=== PATIENT | female | born 1950 | race Caucasian/White ===

== ENCOUNTER 2020-03-18 02:45 | Inpatient (IN) | payer OTHER ==
--- OUTSIDE RECORDS SUMMARY | 2020-03-18 02:49 | XMS REPORT | Clinical Summary ---
:[address] [facility] Address [address] [place] [address] Care Team Providers Name Role Phone Yassine Davis Primary Care Provider Allergies Active Allergy Reactions Severity Noted Date Comments Adhesive Tape Other (See Comments) 04/24/2018 Bruisi ng but paper tape is okay Aspirin Hives, Other (See 04/24/2018 Only when taken with Comments) Shrimp GI upset Codeine Itching, Rash Low 04/24/2018 Shrimp Hives Medium 04/24/2018 Only when taken with Aspirin GI upset Medications Medication Sig Dispensed Refills Start Date End Date Status pantoprazole (PROTONIX) Take 40 mg by 0 Active 40 MG tablet mouth daily. Active Problems Not on file Social History Tobacco Use Types Packs/Day Years Used Date Current Every Day Smoker 1 30 Smokeless Tobacco: Never Used Tobacco Cessation: Ready to Quit: Yes; C ounseling Given: Yes Alcohol Use Drinks/Week oz/Week Comments Yes 14 Glasses of wine 14.0 Sex Assigned at Date Recorded Not on file Last Filed Vital Signs Not on file Plan of Treatment Health Maintenance Due Date Last Done Comments BREAST CANCER SCREENING 1950 COLON CANCER SCREENING COLONOSCOPY 1950 PNEUMOCOCCAL 65+ YRS (1 of - [id number] PCV13) 2017 MEDICARE ANNUAL WELLNESS (YEAR 2 or FIRST YEAR if no 03/14/2019 IPPE) INFLUENZA VACCINE (#1) 2019 Results Not on fileafter 03/18/2019 Insurance Payer Benefit Plan Subscriber ID Effective Phone Address Typ e / Group Dates AETNA - AETNA [id number] 2018-Selin [phone] [address] [employer] MEDICARE MGD MEDICARE OPEN nt 12 [id number] Non-[facility] CARE PLAN PFFS IAN SANTAMARIA acted [id number]
--- OUTSIDE RECORDS SUMMARY | 2020-03-18 02:49 | XMS REPORT | Continuity of Care Document ---
:1950 Author Organization [facility] Address [address] [place] [address] Care Team Providers Name Role Phone Yassine Davis Primary Care Physician JERMAINE ROMO Attending Clinician Unavailable JERMAINE ROMO Admitting Clinician Unavailable Problems This patient has no known problems. Allergies, Adverse Reactions, Alerts Allergy Allergy Status Severity Reaction(s) Onset Inactive Treating Comm ents Source Name Type Date Date Clinician Adhesive Propensi Active Other (See Bru[facility] Comments) 2 but paper [facility] - adverse 00:00: tape is Medical reaction 00 okay [place] [facility] Aspirin Propensi Active Hives, Other Only [facility] to (See 12 when [facility] - adverse Comments) 00:00: taken Medica l reaction 00 with Center s ShrimpGI upset Codeine Propensi Active Itching, 0 [facility] - adverse 00:00: Medical reaction 00 Center s Shrimp Propensi Active Hives 0 Only when [facility] 12 taken [facility] - adverse 00:00: with Medical reaction 00 Aspirin Center s GI upset Social History Social Habit Start Date Stop Date Quantity Comments Source Sex Assigned At [facility] Cigarettes smoked 2018-04-27 2018-04-27 LEONID Nuñez - current (pack per 00:00:00 00:00:00 Medical Center day) - Reported Cigarette 2018-04-27 2018-04-27 LEONID Moraleskes - pack-years 00:00:00 00:00:00 [facility] Tobacco use and 2018-04-27 2018-04-[address] [facility] - exposure 00:00:00 00:00:00 Medical Center Alcohol intake 2018-04-27 2018-04-27 [facility]:00 of alcohol [facility] (finding) Smoking Status Start Date Stop Date Source Current every day smoker 2018-04-27 00:00:[address] [facility] Medications Ordered Filled Start Stop Current Ordering Indication Dosage Frequency Signature Comments Components Source Medication Medication Date Date Medication? Clinician (SIG) Name Name pantoprazol 2018- Yes 40mg QD Take [address] 2-14 by mouth [facility] - (PROTONIX) 17:06: daily. Medic al 40 MG 21 Center tablet Procedures This patient has no known procedures. Plan of Care Planned Activity Planned Date Details Comments Source Future Scheduled 2019-11-12 INFLUENZA VACCINE (#1) [facility] - Test 00:00:00 [code = INFLUENZA Medical Ce nter VACCINE (#1)] Future Scheduled 2019-03-[address] [facility] [facility] - Test 00:00:00 WELLNESS (YEAR 2 or Medical Center FIRST YEAR if no IPPE) [code = MEDICARE ANNUAL WELLNESS (YEAR 2 or FIRST YEAR if no IPPE)] Future Scheduled 2017 PNEUMOCOCCAL 65+ YRS [facility] - Test 00:00:00 (1 of 1 - Medical Center [id number] PCV13) [code = PNEUMOCOCCAL 65+ YRS (1 of 1 - [id number] PCV13)] Future Scheduled [address] [facility] - Test 00:00:00 [facility]) [code = 114112711] Future Scheduled [address] [facility] - Test 00:00:00 [facility] colon (procedure) [code = 350341945] Results Test Description Test Time Test Comments Results Result Comments Source TISSUE EXAM 2018-04-30 Surgical Pathology 14:56:00 Report Case: [id number] Authorizing Provider: Ilene Romo Collected: 04/26/2018 Jennifer Reed MD Ordering Location: [facility] Endoscopy Received: 04/26/2018 1550 Services Pathologist: Nicki Hall MD Specimens: A) - Polyp, Colon - Hepatic Flexure, HEPATIC FLEXURE POLYP - ESD B) - Polyp, Colon - Transverse, TRRANSVERSE COLON POLYP #1 C) - Polyp, Colon - Transverse, TRANSVERSE COLON POLYP #2 D) - Polyp, Colon - Left/Descending, DESCENDING COLON POLYP X2 A. COLON, HEPATIC FLEXURE POLYP, ENDOSCOPIC SUBMUCOSAL DISSECTION: - TUBULAR ADENOMA - SUBMUCOSAL SCAR AND TATTOO - NEGATIVE FOR HIGH-GRADE DYSPLASIA OR MALIGNANCY - MARGIN, FREE OF ADENOMATOUS EPITHELIUMB. COLON, TRANSVERSE POLYP#1, BIOPSY: - COLONIC MUCOSA WITH SLIGHT CRYPT DISTORTION - NEGATIVE FOR HIGH-GRADE DYSPLASIA OR MALIGNANCYC. COLON, TRANSVERSE POLYP#2, BIOPSY: - TUBULAR ADENOMA - NEGATIVE FOR HIGH-GRADE DYSPLASIA OR MALIGNANCY - MARGIN, FREE OF ADENOMATOUS EPITHELIUMD. COLON, DESCENDING POLYPSX2, BIOPSY: - TUBULAR ADENOMAS X 2 - NEGATIVE FOR HIGH-GRADE DYSPLASIA OR MALIGNANCY - MARGIN, FREE OF ADENOMATOUS EPITHELIUM Signing Pathologist Direct Phone Line: [phone] nically signed by Nicki Hall MD on 04/30/2018 at 2:56 [id number] of colon A. Hepatic flexure polyp ESD. B. Transverse colon polyp #1. C. Transverse colon polyp #2. D. Left descending colon polyp #2Specimens are received in four containers of formalin all labeled with the patient's information.Specime n A: Labeled "hepatic flexure polyp ESD" consists of a unoriented round excision of angeles hemorrhagic mucosal soft tissue measuring 1.2 x 1 x 0.1 cm. The surface has a angeles nodular lesion measuring 0.7 x 0.6 x 0.3 cm.Ink code: Periphery blue, deep black.The specimen is serially sectioned from one end to the other and submitted entirely in A1 through A6.Specimen B: Labeled "transverse colon polyp #1" consists of two ragged fragments of angeles tissue measuring 0.1 and 0.4 cm, submitted entirely in B1.Specimen C: Labeled "transverse colon polyp #2" consists of a angeles polyp measuring 1.1 x 0.6 x 0.5 cm. The resection margin is inked blue. The specimen is bisected and submitted entirely in C1.Specimen D: Labeled "left descending colon polyp x2" consists of two fragments of angeles tissue measuring 0.3 and 1 cm. The larger fragment is inked blue at the resection margin, bisected and submitted entirely as follows: D1, smaller fragment of tissue; D2, polyp bisected. CG/ew Performed.
[2020-03-18] MEDS ORDERED: LEVALBUTEROL 1.25 MG/3 ML NEB ONE (03:23)
[2020-03-18] MEDS ORDERED: Magnesium Sulfate 2gm IVPB 2 G/50 ML BAG IV ONE (03:24)
[2020-03-18 03:27] LABS: Basophils % 0.4 % (0-1.3); Hematocrit 42.5 % (36.0-45.0); Lymphocytes % 14.1 % (15.3-44.8); MPV 6.8 fL (7.6-11.3); RBC Red Blood Cell Count 3.61 M/uL (3.86-4.86)
[2020-03-18 03:28] LABS: Protime INR 0.91
[2020-03-18] MEDS ORDERED: ALBUTEROL INHALER 60 PUFF/8 GM IH ONE (03:40)
[2020-03-18 03:48] LABS: ALT/SGPT 31 U/L (12-78); AST/SGOT 50 U/L (15-37); Albumin 3.5 g/dL (3.4-5.0); Alkaline Phosphatase 123 U/L (45-117); BUN Blood Urea Nitrogen 13 mg/dL (7-18); Bicarbonate 21 mmol/L (21-32); Bilirubin Direct 0.3 mg/dL (0-0.2); Bilirubin Total 0.8 mg/dL (0.2-1.0); C-Reactive Protein < 2.90 mg/L (<3.00); Ferritin 165.9 ng/mL (8-388); Glucose Level 171 mg/dL (74-106); Potassium 3.7 mmol/L (3.5-5.1); Protein, Total 6.7 g/dL (6.4-8.2); Sodium Level 140 mmol/L (136-145); Troponin (Emerg Dept Use Only) 0.02 ng/mL (0.0-0.045)
[2020-03-18 04:23] LABS: SARS-COV-2 RT PCR NEGATIVE (NEGATIVE)
[2020-03-18] MEDS ORDERED: NA CHLORIDE 0.9% 500 ML ONE ×2 (04:37→06:10)
[2020-03-18 04:50] LABS: Blood Morphology Comment NOTED (NOT SEEN); Macrocytosis 3+; Platelet Estimate ADEQ; White Blood Cell Scan OK (OK)
--- NOTE | 2020-03-18 04:51 | EDPHYS ---
Physician Documentation [facility] Name: Lety Benson Age: 69 yrs Sex: Female : 1950 Arrival Date: 03/18/2020 Time: 02:49 Bed 4 Private MD: ED Physician Leonard Guerrero HPI: 03/18 03:13 This 69 yrs old Female presents to ER via EMS with complaints of Shortness Of rn Breath. 03:13 The patient has shortness of breath at rest. Onset: The symptoms/episode began/occurred rn 1 hour(s) ago. Duration: The symptoms are continuous. The patient's shortness of breath is aggravated by nothing, is alleviated by nothing. Associated signs and symptoms: Pertinent positives: non-productive cough, Pertinent negatives: diaphoresis, fever, hemoptysis, loss of consciousness. Severity of symptoms: At their worst the symptoms were moderate in the emergency department the symptoms have improved. The patient has experienced similar episodes in the past. The patient has not recently seen a physician. Reports sob that began about 1 hour ago, sudden onset, denies fever or hemoptysis, no hx of blood clot. No trauma. + COPD. Reports feeling better since EMS arrival, given solumedrol. No chest pain or pressure. . Historical: - Allergies: 02:50 Codeine; sg 02:50 Iodine; sg - PSHx: 02:50 Gastric Bypass; sg - Immunization history:: Adult Immunizations up to date. - Social history:: Smoking status: Patient reports the use of cigarette tobacco products. - Family history:: not pertinent. - Hospitalizations: : No recent hospitalization is reported. ROS: 04:23 Constitutional: Negative for fever, chills, and weight loss, Eyes: Negative for injury, rn pain, redness, and discharge, Neck: Negative for injury, pain, and swelling, Cardiovascular: Negative for chest pain, palpitations, and edema, Respiratory: + cough and sob Abdomen/GI: Negative for abdominal pain, nausea, vomiting, diarrhea, and constipation, Back: Negative for injury and pain, MS/Extremity: Negative for injury and deformity, Skin: Negative for injury, rash, and discoloration, Neuro: Negative for headache, numbness, tingling, and seizure. Exam: 04:23 Constitutional: This is a well developed, well nourished patient who is awake, alert, rn mild tachypnea Head/Face: Normocephalic, atraumatic. ENT: no stridor Cardiovascular: Tachycardic, regular Respiratory: + mild tachypnea, no retractions Abdomen/GI: Soft, non-tender Skin: Warm, dry MS/ Extremity: Pulses equal, no cyanosis. Equal circumference. Neuro: Awake and alert, GCS 15 Vital Signs: 03:04 BP 102 / 48; Pulse 116; Resp 32 S; Temp 97.8(TE); Pulse Ox 92% on R/A; Weight 75.75 kg sg (R); 04:19 BP 102 / 65; Pulse 115; Resp 22; Pulse Ox 90% on NC; ea 05:30 BP 107 / 69; Pulse 117; Resp 20; Pulse Ox 90% ; ea 06:11 BP 108 / 49; Pulse 104; Resp 16; Temp 98; Pulse Ox 95% on 2 lpm NC; rv MDM: 02:55 Patient medically screened. rn 04:48 Differential diagnosis: Chronic Obstructive Pulmonary Disease Myocardial Infarction rn pneumonia, Pneumothorax pulmonary edema, Pulmonary Embolism. Data reviewed: vital signs, nurses notes, lab test result(s), EKG, radiologic studies, plain films, and as a result, I will admit patient. Test interpretation: by ED physician or midlevel provider: plain radiologic studies, CXR clear of focal infiltrate. Counseling: I had a detailed discussion with the patient and/or guardian regarding: the historical points, exam findings, and any diagnostic results supporting the discharge/admit diagnosis, lab results, radiology results. Admission orders: after a detailed discussion of the patient's condition and case, the admit orders are written by me. ED course: Pt chart states allergy to iodine, patient not really sure of allergy and not sure if has had IV contrast in past. I see 1 study with IV contrast but not sure if she had a reaction at the time. Needs to be admitted for COPD exacerbation, will get VQ scan to rule out PE given rapid onset of dyspnea. COVID neg. Trop neg. . 03/18 03:02 Order name: Blood Culture Adult (2) rn 03/18 03:02 Order name: BMP rn 03/18 03:02 Order name: C-Reactive Protein rn 03/18 03:02 Order name: CBC with Diff rn 03/18 03:02 Order name: COVID-19 rn 03/18 03:02 Order name: D-Dimer rn 03/18 03:02 Order name: Ferritin rn 03/18 03:02 Order name: Flu rn 03/18 03:02 Order name: Lactate; Complete Time: 04:10 rn 03/18 03:02 Order name: LFT's; Complete Time: 04:10 rn 03/18 03:02 Order name: Procalcitonin; Complete Time: 04:32 rn 03/18 03:02 Order name: PT-INR; Complete Time: 04:42 rn 03/18 03:02 Order name: Ptt, Activated; Complete Time: 04:42 rn 03/18 03:02 Order name: Troponin (emerg Dept Use Only); Complete Time: 04:10 rn 03/18 03:02 Order name: CXR XRAY rn 03/18 03:02 Order name: Blood Culture EDMS 03/18 03:03 Order name: Basic Metabolic Panel; Complete Time: 04:10 EDMS 03/18 03:03 Order name: C-Reactive Protein; Complete Time: 04:10 EDMS 03/18 03:03 Order name: CBC with Automated Diff; Complete Time: 04:52 EDMS 03/18 03:03 Order name: D-Dimer; Complete Time: 04:42 EDMS 03/18 03:03 Order name: Ferritin; Complete Time: 04:10 EDMS 03/18 03:36 Order name: CBC Smear Scan; Complete Time: 04:52 EDMS 03/18 04:23 Order name: COVID-19/FLU A+B; Complete Time: 04:29 EDMS 03/18 03:02 Order name: EKG; Complete Time: 03:03 rn 03/18 03:02 Order name: Cardiac monitoring; Complete Time: 03:30 rn 03/18 03:02 Order name: Droplet/Contact Precautions; Complete Time: 03:30 rn 03/18 03:02 Order name: EKG - Nurse/Tech; Complete Time: 03:30 rn 03/18 03:02 Order name: IV Start; Complete Time: 03:30 rn 03/18 03:02 Order name: Labs collected and sent; Complete Time: 03:30 rn 03/18 03:02 Order name: O2 Per Protocol; Complete Time: 03:30 rn 03/18 03:02 Order name: O2 Sat Monitoring; Complete Time: 03:30 rn Administered Medications: 03:22 Drug: Magnesium Sulfate 1 grams Route: IVPB; Infused Over: 1 hrs; Site: right ea antecubital; 05:54 Follow up: Response: No adverse reaction; IV Status: Completed infusion ea 03:30 Drug: Albuterol HFA Inhaler 2 puffs Route: Inhalation; rv 04:25 Drug: NS 0.9% 500 ml Route: IV; Rate: bolus; Site: left antecubital; ea 05:54 Follow up: Response: No adverse reaction; IV Status: Completed infusion; IV Intake: ea 500ml 04:48 Drug: Xopenex (3) 1.25 mg Route: Inhalation; ea 06:04 Drug: NS 0.9% 500 ml Route: IV; Rate: bolus; Site: right forearm; ea Disposition: 03/18/20 04:50 Hospitalization ordered by Mario Baires for Inpatient Admission. Preliminary diagnosis are Chronic obstructive pulmonary disease with (acute) exacerbation, Hypoxemia. - Bed requested for Telemetry/MedSurg (Inpatient). - Status is Inpatient Admission. rv - Condition is Stable. - Problem is an acute exacerbation. - Symptoms have improved. Signatures: Dispatcher [employer] [facility] Mireya Rubin RN RN mw Gay, Steven, RN RN sg Nieto, Roman, MD MD rn Attema, Lee, COUNTER CUTTER-C COUNTER CUTTER-Cla1 Erna Gonzalez RN RN ea Vicente, Ronaldo, RN RN rv Corrections: (The following items were deleted from the chart) 02:50 02:50 Social history: Smoking status: Patient denies any tobacco usage or history of. sgs 03:30 03:03 CORONAVIRUS ordered. EDMT EDMS 03:30 03:03 Influenza Screen (A ordered. EDMT EDMS 04:57 04:50 Hospitalization Ordered by Mario Baires DO for Inpatient Admission. Preliminary mw diagnosis is Chronic obstructive pulmonary disease with (acute) exacerbation; Hypoxemia. Bed requested for Telemetry/MedSurg (Inpatient). Status is Inpatient Admission. Condition is Stable. Problem is an acute exacerbation. Symptoms have improved. rn 06:12 04:57 03/18/2020 04:50 Hospitalization Ordered by Mario Baires DO for Inpatient rv Admission. Preliminary diagnosis is Chronic obstructive pulmonary disease with (acute) exacerbation; Hypoxemia. Bed requested for Telemetry/MedSurg (Inpatient). Status is Inpatient Admission. Condition is Stable. Problem is an acute exacerbation. Symptoms have improved. mw
--- NOTE | 2020-03-18 04:51 | ER ---
Nurse's Notes [facility] Name: Lety Benson Age: 69 yrs Sex: Female : 1950 Arrival Date: 03/18/2020 Time: 02:49 Bed 4 Private MD: Diagnosis: Chronic obstructive pulmonary disease with (acute) exacerbation;Hypoxemia Presentation: 03/18 02:50 Chief complaint: EMS states: pt told that she was having shortness of breath sg that worsens this morning, denies any other symptoms at this time, denies N/V/D/Fever, states no known COVID exposure. Coronavirus screen: shortness of breath, Client presents with at least one sign or symptom that may indicate coronavirus-19. Provider contacted for isolation considerations. The client denies any previous COVID testing. Ebola Screen: Patient negative for fever greater than or equal to 101.5 degrees Fahrenheit, and additional compatible Ebola Virus Disease symptoms Patient denies exposure to infectious person. Patient denies travel to an Ebola-affected area in the 21 days before illness onset. No symptoms or risks identified at this time. Initial Sepsis Screen: Does the patient meet any 2 criteria? RR > 20 per min. HR > 90 bpm. Yes Does the patient have a suspected source of infection? No. Patient's initial sepsis screen is negative. Risk Assessment: Do you want to hurt yourself or someone else? Patient reports no desire to harm self or others. Onset of symptoms was March 18, 2020. Care prior to arrival: Medication(s) given: Solumedrol 125 mg IV initiated. 20 GA, in the right forearm, Med neb given. Oxygen administered. via a non-rebreather mask. Activity prior to arrival: None. Transition of care: patient was not received from another setting of care. 02:50 Acuity: COOPER 3 sg 02:50 Method Of Arrival: EMS: [facility] Triage Assessment: 03:29 General: Appears ill. Respiratory: Reports shortness of breath at rest Onset: The rv symptoms/episode began/occurred today, Historical: - Allergies: 02:50 Codeine; sg 02:50 Iodine; sg - PSHx: 02:50 Gastric Bypass; sg - Immunization history:: Adult Immunizations up to date. - Social history:: Smoking status: Patient reports the use of cigarette tobacco products. - Family history:: not pertinent. - Hospitalizations: : No recent hospitalization is reported. Screenin:27 Abuse screen: Denies threats or abuse. Denies injuries from another. Nutritional rv screening: No deficits noted. Tuberculosis screening: No symptoms or risk factors identified. Fall Risk None identified. Assessment: 03:28 General: Appears uncomfortable, Behavior is calm, cooperative. Pain: Denies pain. rv Neuro: Level of Consciousness is awake, alert, obeys commands, Oriented to person, place, time, situation. Cardiovascular: Patient's skin is warm and dry. Rhythm is sinus tachycardia. Respiratory: Airway is patent Respiratory effort is labored, Breath sounds with wheezes bilaterally. Derm: Skin is intact. 03:44 Reassessment: UPDATED REGARDING PT STATUS. MR HERNANDEZ [phone]. rv 04:15 Reassessment: Patient and/or family updated on plan of care and expected duration. Pain ea level reassessed. Pt resting with eyes closed, respirations even and unlabored, chest expansions even and symmetrical. No s/s of pain noted at this time. 05:01 Reassessment:. rv 05:47 Reassessment: Patient and/or family updated on plan of care and expected duration. Pain ea level reassessed. Patient is alert, oriented x 3, equal unlabored respirations, skin warm/dry/pink. Vital Signs: 03:04 BP 102 / 48; Pulse 116; Resp 32 S; Temp 97.8(TE); Pulse Ox 92% on R/A; Weight 75.75 kg sg (R); 04:19 BP 102 / 65; Pulse 115; Resp 22; Pulse Ox 90% on NC; ea 05:30 BP 107 / 69; Pulse 117; Resp 20; Pulse Ox 90% ; ea 06:11 BP 108 / 49; Pulse 104; Resp 16; Temp 98; Pulse Ox 95% on 2 lpm NC; rv ED Course: 02:49 Patient arrived in ED. sg 02:50 Arm band placed on. sg 02:55 Leonard Guerrero MD is Attending Physician. rn 03:02 Tony Pike RN is Primary Nurse. rv 03:04 Triage completed. sg 03:12 Inserted saline lock: 22 gauge in left forearm, using aseptic technique. Blood rv collected. 03:12 Initial lab(s) drawn, by me, sent to lab. First set of blood cultures drawn by me. rv 03:21 Second set of blood cultures drawn by me. rv 03:29 Patient has correct armband on for positive identification. Bed in low position. Call rv light in reach. Side rails up X 1. residential monitor on. Pulse ox on. NIBP on. 03:29 COVID swab sent to lab. sg 04:05 CXR XRAY In Process Unspecified. EDMS 04:38 Notified ED physician of a critical lab result(s). elevated D DIMER. sg 04:49 No provider procedures requiring assistance completed. Patient admitted, IV remains in ea place. 04:50 Mario Baires DO is Hospitalizing Provider. rn Administered Medications: 03:22 Drug: Magnesium Sulfate 1 grams Route: IVPB; Infused Over: 1 hrs; Site: right ea antecubital; 05:54 Follow up: Response: No adverse reaction; IV Status: Completed infusion ea 03:30 Drug: Albuterol HFA Inhaler 2 puffs Route: Inhalation; rv 04:25 Drug: NS 0.9% 500 ml Route: IV; Rate: bolus; Site: left antecubital; ea 05:54 Follow up: Response: No adverse reaction; IV Status: Completed infusion; IV Intake: ea 500ml 04:48 Drug: Xopenex (3) 1.25 mg Route: Inhalation; ea 06:04 Drug: NS 0.9% 500 ml Route: IV; Rate: bolus; Site: right forearm; ea Intake: 05:54 IV: 500ml; Total: 500ml. ea Outcome: 04:49 Instructed on the need for admit, Demonstrated understanding of instructions. ea 04:50 Decision to Hospitalize by Provider. rn 06:12 Admitted to Med/surg accompanied by tech, via stretcher, room 208, with chart, Report rv called to JULY AKHTAR 06:12 Condition: good 06:12 Patient left the ED. rv Signatures: Dispatcher [employer] Melvin Biswas RN RN sg Nieto, Roman, MD MD rn Antunez, Elena, RN RN ea Vicente, Ronaldo, RN RN rv Corrections: (The following items were deleted from the chart) 02:50 02:50 Social history: Smoking status: Patient denies any tobacco usage or history of. sgsg
--- NOTE | 2020-03-18 05:14 | P.HP ---
Certification for Inpatient Patient admitted to: Observation With expected LOS: <2 Midnights Patient will require the following post-hospital care: None Practitioner: I am a practitioner with admitting privileges, knowledge of patient current condition, hospital course, and medical plan of care. Services: Services provided to patient in accordance with Admission requirements found in Title 42 Section 412.3 of the Code of Federal Regulations <Kushal Bowman - Last Filed: 03/18/20 05:10> Patient admitted to: Observation <Mario Baires - Last Filed: 03/18/20 09:42> Patient History Date of Service: 03/18/20 Primary Care Provider: Dr. Davis Reason for admission: COPD exacerbation History of Present Illness: 69-year-old female with history of COPD, tobacco abuse, GERD, arthritis presents the emergency department for shortness of breath. Patient reports that she has had increasing shortness of breath over the course of the last 24 hr in addition to her long-standing baseline dyspnea on exertion. Patient was found to be hypoxic on room air by EMS with saturations reported to have been in the 80s. Patient was transferred to the emergency department after being administered IV steroids and breathing treatments, upon arrival to the emergency department patient's room air saturations around 90%. Patient was evaluated in the emergency department, labs relatively unremarkable aside from elevated D-dimer 5000. COVID test negative, ED provider wishes to admit patient for further evaluation and management. Chest x-ray unremarkable. - Past Medical/Surgical History -: COPD -: Arthritis -: GERD -: Gastric bypass -: Appendectomy -: Cholecystectomy -: Tubal ligation -: Hysterectomy Psychosocial/ Personal History: Patient is retired and lives with her - Family History Family History: Reviewed- Non-Contributory - Social History Smoking Status: Current every day smoker Counseled patient to stop smoking for: less than 10 minutes Smoking therapy provided: No Alcohol use: Yes CD- Drugs: No Caffeine use: Yes Place of Residence: Home <Kushal Bowman - Last Filed: 03/18/20 05:10> Date of Service: 03/18/20 - Past Medical/Surgical History Diabetic: No <Mario Baires - Last Filed: 03/18/20 09:42> Allergies codeine Allergy (Mild, Verified 03/18/20 06:54) Itching iodine Allergy (Verified 03/18/20 06:54) Unknown Review of Systems 10-point ROS is otherwise unremarkable Respiratory: Cough, Shortness of Breath, SOB with Excertion, Sputum <Kushal Bowman - Last Filed: 03/18/20 05:10> Physical Examination - Physical Exam General: Alert, In no apparent distress HEENT: Atraumatic, PERRLA, Mucous membr. moist/pink Neck: Supple, 2+ carotid pulse no bruit, No LAD Respiratory: Normal air movement, Expiratory wheezes (Bilaterally) Cardiovascular: Regular rate/rhythm, Normal S1 S2 Capillary refill: <2 Seconds Gastrointestinal: Normal bowel sounds, No tenderness Musculoskeletal: No tenderness Integumentary: No rashes Neurological: Normal speech, Normal strength at 5/5 x4 extr, Normal tone, Normal affect - Studies Laboratory Data (last 24 hrs) 03/18/20 04:12: PT 10.7, INR 0.91, APTT 20.7 L 03/18/20 03:12: Sodium 140, Potassium 3.7, BUN 13, Creatinine 0.59, Glucose 171 H, Total Bilirubin 0.8, AST 50 H, ALT 31, Alkaline Phosphatase 123 H 03/18/20 03:02: WBC 7.3, Hgb 14.6, Hct 42.5, Plt Count 180 <Kushal Bowman - Last Filed: 03/18/20 05:10> - Studies Laboratory Data (last 24 hrs) 03/18/20 04:12: PT 10.7, INR 0.91, APTT 20.7 L 03/18/20 03:12: Sodium 140, Potassium 3.7, BUN 13, Creatinine 0.59, Glucose 171 H, Total Bilirubin 0.8, AST 50 H, ALT 31, Alkaline Phosphatase 123 H 03/18/20 03:02: WBC 7.3, Hgb 14.6, Hct 42.5, Plt Count 180 <Mario Baires - Last Filed: 03/18/20 09:42> Assessment and Plan - Plan Assessment Dyspnea with hypoxia secondary to COPD exacerbation with elevated D-dimer rule out pulmonary embolism GERD Plan Dyspnea with hypoxia secondary to COPD exacerbation with elevated D-dimer rule out pulmonary embolism: Continue with IV steroids, scheduled nebs, steroid inhaler. Supplemental oxygen as needed, daily room air saturation. Patient with allergy to iodine, will need to obtain V/Q scan to rule out pulmonary embolism as D-dimer is significantly elevated. Continue with Lovenox 40 mg subcutaneous once daily for DVT prophylaxis. GERD: Obtain and continue home medication. Discharge Plan: Home Plan to discharge in: 24 Hours - Advance Directives Does patient have a Living Will: No Does patient have a Durable POA for Healthcare: No - Code Status/Comfort Care Code Status Assessed: Yes (Full code) Critical Care: No Time Spent Managing Pts Care (In Minutes): 55 <Kushal Bowman - Last Filed: 03/18/20 05:10> - Plan Case discussed in detail with nurse practitioner. Agree with evaluation, assessment and plan of care. Will consult pulmonology for further recommendation. Continue IV steroids. Wean off oxygen. Patient reports that she has not used any of her inhalers for over a year. Patient reports history of COPD and tobacco abuse. Please see notes for details. <Mario Baires - Last Filed: 03/18/20 09:42>
--- NOTE | 2020-03-18 06:32 | EKG ---
Test Date: 2020-03-18 Test Time: 03:35:05 Electronic Warfare Specialist: RV MEASUREMENT RESULTS: Intervals: Rate: 111 DE: 152 QRSD: 88 QT: 334 QTc: 454 [place]: P: 69 DE: 152 QRS: 95 T: 3 INTERPRETIVE STATEMENTS: Sinus tachycardia with premature atrial complexes Rightward axis ST & T wave abnormality, consider inferior ischemia Abnormal ECG Compared to ECG 06/27/2015 19:37:39 Atrial premature complex(es) now present Right-axis deviation now present ST (T wave) deviation now present Possible ischemia now present Sinus rhythm no longer present Sinus arrhythmia no longer present Electronically Signed On 03-18-20 06:31:43 RESPIRATORY EQUIPMENT ASSISTANT by Christiano Craig
[2020-03-18] MEDS ORDERED: ONDANSETRON 4 MG/2 ML VIAL IV PRN (06:56)
[2020-03-18] MEDS ORDERED: ACETAMINOPHEN 500 MG TAB PO PRN (06:56)
[2020-03-18] MEDS ORDERED: IPRATROPIUM BROM 0.5MG/2.5ML NEB SCH (08:00)
[2020-03-18] MEDS ORDERED: ALBUTEROL 2.5 MG/3 ML NEB SOL NEB SCH (08:00)
[2020-03-18] MEDS ORDERED: METHYLPREDNISOLONE 40 MG INJ IV SCH (09:00)
[2020-03-18] MEDS ORDERED: DULERA 100/5 (MOMETASONE/FORMOTEROL) INHALER IH SCH (09:00)
[2020-03-18] MEDS ORDERED: ENOXAPARIN 40 MG/0.4 ML SQ SCH (09:00)
--- NOTE | 2020-03-18 09:48 | P.PN ---
Subjective Date of Service: 03/18/20 Primary Care Provider: Dr. Davis Chief Complaint: COPD exacerbation Subjective: Improving (Patient still requiring oxygen. Some tachypnea and tachycardia noted.) Physical Examination - Vital Signs Temperature: 97.5 F Blood Pressure: 134/56 Pulse: 123 Respirations: 22 Pulse Ox (%): 100 - Physical Exam General: Alert, In no apparent distress, Oriented x3, Cooperative HEENT: Atraumatic Neck: Supple Respiratory: Expiratory wheezes Cardiovascular: Abnormal pulses (Sinus tachycardia) Gastrointestinal: Normal bowel sounds, No tenderness, No masses, No rebound, No guarding Neurological: Normal speech, Normal strength at 5/5 x4 extr, Normal tone, Normal affect - Studies Laboratory Data (last 24 hrs) 03/18/20 04:12: PT 10.7, INR 0.91, APTT 20.7 L 03/18/20 03:12: Sodium 140, Potassium 3.7, BUN 13, Creatinine 0.59, Glucose 171 H, Total Bilirubin 0.8, AST 50 H, ALT 31, Alkaline Phosphatase 123 H 03/18/20 03:02: WBC 7.3, Hgb 14.6, Hct 42.5, Plt Count 180 Medications List Reviewed: Yes Assessment & Plan Discharge Plan: Home Plan to discharge in: 24 Hours Physician Review Additional Text: Assessment Dyspnea with hypoxia secondary to COPD exacerbation with hypoxia and elevated D-dimer rule out pulmonary embolism GERD Tobacco abuse Plan Dyspnea with hypoxia secondary to COPD exacerbation with hypoxia and elevated D-dimer rule out pulmonary embolism: Continue IV Solu-Medrol. Continue COPD treatment. Will continue to wean off oxygen. Will check ABG today. Will order echocardiogram. Consult pulmonology for further recommendation. Will also order V/Q scan to rule out pulmonary embolism. Continue monitor closely. Patient reports having COPD but not taking any medication in over a year. Anticipate improvement over the next 48 hr. Patient will likely require home oxygen at discharge. GERD: Continue medication Tobacco abuse: Will teach on tobacco cessation. Will provide nicotine patch as needed. Time Spent Managing Pts Care (In Minutes): 55
[2020-03-18] MEDS ORDERED: LEVALBUTEROL 0.63 MG/3 ML NEB NEB PRN (09:49)
--- NOTE | 2020-03-18 10:04 | RAD REPORT ---
EXAM DESCRIPTION: RAD - Chest Single View - 03/18/2020 4:05 am CLINICAL HISTORY: COPD;Dyspnea;Cough COMPARISON: None. FINDINGS: Single frontal radiograph view of the chest. Cardiomediastinal silhouette: Atherosclerotic calcification of the thoracic aorta. Heart is not enlar ged. Lungs: No consolidation, pneumothorax, or pleural effusion. Leads overlie the chest. Bones: Degenerative change of the spine. Upper abdomen: No abnormality identified. IMPRESSION: 1. No acute pulmonary process identified. Electronically signed by: Justin Flor 03/18/2020 4:43 AM FOUNDER CEO & PRESIDENT Due to temporary technical issues with the PACS/Fluency reporting system, reports are being signed by the in house radiologist without review as a courtesy to ensure prompt reporting. The interpreting r adiologist is fully responsible for the content of the report.
[2020-03-18 10:51] LABS: Blood Gas Oxyhemoglobin 85.9 % (94-97)
--- NOTE | 2020-03-18 12:34 | P.CNS ---
Date of Consult: 03/18/20 Reason for Consult: Respiratory failure Primary Care Provider: Dr. Davis Chief Complaint: COPD exacerbation History of Present Illness: Patient is 69 years of age with a history of COPD does not take any treatment has been having shortness of breath cut quite some time she became acutely worse and appeared in the emergency room as found to be hypoxic this morning patient was still very tachypneic D-dimer was very elevated cunha virus negative Allergies codeine Allergy (Mild, Verified 03/18/20 06:54) Itching - Past Medical/Surgical History Diabetic: No -: COPD -: Arthritis -: GERD -: Gastric bypass -: Appendectomy -: Cholecystectomy -: Tubal ligation -: Hysterectomy Psychosocial/ Personal History: Patient is retired and lives with her - Social History Smoking Status: Current every day smoker Alcohol use: Yes CD- Drugs: No Caffeine use: Yes Place of Residence: Home Review of Systems 10-point ROS is otherwise unremarkable General: Weakness Respiratory: Shortness of Breath Physical Examination Temp Pulse Resp BP Pulse Ox 97.5 F 123 H 22 H 134/56 L 100 03/18/20 09:48 03/18/20 09:48 03/18/20 09:48 03/18/20 09:48 03/18/20 09:48 General: Alert, Moderate distress Respiratory: Expiratory wheezes Cardiovascular: No edema, Regular rate/rhythm Gastrointestinal: Normal bowel sounds, Hypoactive, Non-distended Laboratory Data (last 24 hrs) 03/18/20 04:12: PT 10.7, INR 0.91, APTT 20.7 L 03/18/20 03:12: Sodium 140, Potassium 3.7, BUN 13, Creatinine 0.59, Glucose 171 H, Total Bilirubin 0.8, AST 50 H, ALT 31, Alkaline Phosphatase 123 H 03/18/20 03:02: WBC 7.3, Hgb 14.6, Hct 42.5, Plt Count 180 - Problems (1) Respiratory failure Current Visit: Yes Status: Acute Plan: Patient is 69 years of age with a history of COPD admitted with hypoxic hypercapnic respiratory failure history of COPD she is not on any treatment for it to rule out thromboembolism empiric anticoagulation the mean time 2D echocardiogram maximum bronchodilator therapy agree with CT pulmonary angiogram high-flow oxygen Qualifiers: Respiratory failure complication: hypoxia
[2020-03-18] MEDS ORDERED: ENOXAPARIN 40 MG/0.4 ML SQ ONE (13:00)
--- NOTE | 2020-03-18 15:34 | RAD REPORT ---
EXAM DESCRIPTION: CT - Chest For Pe Angio - 03/18/2020 3:23 pm CLINICAL HISTORY: Chest pain. elevated d dimer, COPD COMPARISON: Chest Abd Pelvis Wo Con dated 06/27/2015 TECHNIQUE: CT angiogram of the pulmonary arteries was performed with MIP. All CT scans are performed using dose optimization technique as appropriate and may include automated exposure control or mA/KV adjustment according to patient size. FINDINGS: Pulmonary thromboembolism is present in both the left and right main pulmonary artery and distal branches. Evidence of mild right heart strain is seen. No acute aortic finding demonstrated. Mild COPD is present. Small right pleural effusion. Postsurgical changes are present about the stomach. IMPRESSION: Extensive bilateral pulmonary embolism is seen with right heart strain pattern. Small right pleural effusion with emphysematous changes noted. Dr. Baires was notified.
[2020-03-18] MEDS: METHYLPREDNISOLONE 40 MG INJ IV SCH (16:41)
[2020-03-18] MEDS: ARFORMOTEROL TARTRATE 15 MCG/2 ML VIAL.NEB NEB SCH (20:10)
[2020-03-18] MEDS: IPRATROPIUM BROM 0.5MG/2.5ML NEB PRN (20:10)
[2020-03-18] MEDS: ENOXAPARIN 80 MG/0.8 ML SQ SCH (20:34)
[2020-03-18] MEDS: FAMOTIDINE 20 MG TAB PO SCH (20:34)
[2020-03-19] MEDS: METHYLPREDNISOLONE 40 MG INJ IV SCH ×2 (00:13→08:44)
[2020-03-19 06:15] LABS: BUN Blood Urea Nitrogen 15 mg/dL (7-18); Bicarbonate 27 mmol/L (21-32); Glucose Level 145 mg/dL (74-106); Magnesium 2.6 mg/dL (1.8-2.4); Potassium 4.8 mmol/L (3.5-5.1); Sodium Level 139 mmol/L (136-145)
[2020-03-19 06:22] LABS: Absolute Lymphocytes (CBC) 0.6 K/uL (0.7-4.9); Basophils % 0.1 % (0-1.3); Hematocrit 39.7 % (36.0-45.0); Lymphocytes % 5.1 % (15.3-44.8); MPV 8.1 fL (7.6-11.3); RBC Red Blood Cell Count 3.36 M/uL (3.86-4.86)
--- NOTE | 2020-03-19 08:35 | ECHO ---
HEIGHT: 5 ft 3 in WEIGHT: 170 lb 0 oz DATE OF STUDY: 03/18/[address]: Mario Baires DO 2-DIMENSIONAL: YES M.MODE: YES DOPPLER: YES COLOR FLOW: YES TDS: YES PORTABLE: DEFINITY: BUBBLE STUDY: DIAGNOSIS: CHRONIC OBSTRUCTIVE PULMONARY DISEASE CARDIAC HISTORY: CATHERIZATION: SURGERY: PROSTHETIC VALVE: PACEMAKER: MEASUREMENTS (cm) DIASTOLIC (NORMALS) SYSTOLIC (NORMALS) IVSd 0.9 (0.6-1.2) LA Diam (1.9-4.0) LVEF 66% LVIDd 3.0 (3.5-5.7) LVIDs 1.9 (2.0-3.5) %FS 35% LVPWd 1.0 (0.6-1.2) Ao Diam 2.8 (2.0-3.7) 2 DIMENSIONAL ASSESSMENT: RIGHT ATRIUM: DILATED LEFT ATRIUM: NORMAL RIGHT VENTRICLE: DILATED LEFT VENTRICLE: NORMAL TRICUSPID VALVE: NORMAL MITRAL VALVE: NORMAL PULMONIC VALVE: NORMAL AORTIC VALVE: NORMAL PERICARDIAL EFFUSION: NONE AORTIC ROOT: NORMAL LEFT VENTRICULAR WALL MOTION: NORMAL DOPPLER/COLOR FLOW: COMMENTS: MILD PULMONARY HYPERTENSION. 40mmHg RIGHT VENTRICULAR SYSTOLIC PRESSURE. RIGHT VENTRICULAR ENLARGEMENT, RIGHT ATRIAL ENLARGEMENT. NORMAL LEFT VENTRICULAR SIZE AND SIZE. TECHNOLOGIST: BERNABE PALACIO
--- NOTE | 2020-03-19 08:36 | P.PN ---
Subjective Date of Service: 03/19/20 Primary Care Provider: Dr. Davis Chief Complaint: COPD exacerbation Subjective: Other (Patient is stable. On High flow oxygen 75%) Physical Examination - Vital Signs Temperature: 97.2 F Blood Pressure: 132/60 Pulse: 75 Respirations: 20 Pulse Ox (%): 97 - Physical Exam General: Alert, In no apparent distress, Oriented x3, Cooperative HEENT: Atraumatic Neck: Supple Respiratory: Expiratory wheezes Cardiovascular: Normal pulses, Regular rate/rhythm Gastrointestinal: Normal bowel sounds, Soft and benign, Non-distended, No masses, No rebound, No guarding Integumentary: No erythema, No warmth, No cyanosis Neurological: Normal speech, Normal strength at 5/5 x4 extr, Normal tone, Normal affect - Studies Medications List Reviewed: Yes Assessment & Plan Discharge Plan: Home Plan to discharge in: Greater than 2 days Physician Review Additional Text: Assessment Dyspnea secondary to acute respiratory failure with hypoxia related to COPD exacerbation and bilateral extensive pulmonary embolism with mild pulmonary hypertension GERD Tobacco abuse Plan Dyspnea secondary to acute respiratory failure with hypoxia related to COPD exacerbation and bilateral extensive pulmonary embolism with mild pulmonary hypertension : Case discussed in detail with pulmonology. Patient stable on high-flow at 75%. Echo shows mild pulmonary hypertension. 40 mm Hg right ventricular systolic pressure noted. Right ventricular enlargement and right atrial enlargement noted. Pulmonology recommends tPA. Risks and benefits was addressed in detail with the patient. Patient understands the risks of bleeding. She has agreed especially since patient still requires high-flow. Will change Lovenox to heparin drip. Will transfer the patient to the ICU so that tPA can be given and monitored closely. Continue to wean off oxygen. Continue Solu-Medrol. Continue with COPD medication. Will continue to monitor closely. GERD: Continue medication Tobacco abuse: Will teach on tobacco cessation. Will provide nicotine patch as needed. Time Spent Managing Pts Care (In Minutes): 55
[2020-03-19] MEDS: FAMOTIDINE 20 MG TAB PO SCH ×2 (08:42→22:21)
[2020-03-19] MEDS: FOLIC ACID 1 MG TABLET PO SCH (08:42)
[2020-03-19] MEDS ORDERED: ALTEPLASE 1 MG/ML *Bolus for stroke orders only IV ONE (08:44)
[2020-03-19] MEDS: NICOTINE 21 MG/PAT TD SCH (08:44)
[2020-03-19] MEDS: ENOXAPARIN 80 MG/0.8 ML SQ SCH (08:47)
[2020-03-19] MEDS ORDERED: THIAMINE HCL 100 MG TABLET PO SCH (09:00)
[2020-03-19] MEDS ORDERED: HEPARIN/D5W 25,000 UNIT/500 ML BAG IV SCH (09:00)
[2020-03-19] MEDS: ARFORMOTEROL TARTRATE 15 MCG/2 ML VIAL.NEB NEB SCH ×2 (09:25→20:00)
[2020-03-19] MEDS: IPRATROPIUM BROM 0.5MG/2.5ML NEB PRN ×2 (09:25→20:00)
[2020-03-19 10:36] LABS: Blood Morphology Comment NOTED (NOT SEEN); Macrocytosis 3+; Platelet Estimate ADEQ
[2020-03-19 10:49] VITALS: BMI 30.6
[2020-03-19] MEDS ORDERED: ALTEPLASE 100 ML IV ONE (11:00)
--- NOTE | 2020-03-19 13:51 | P.PN ---
Subjective Date of Service: 03/20/20 Primary Care Provider: Dr. Davis Chief Complaint: Pulmonary embolism Patient is still is very short of breath significant bilateral pulmonary emboli with right ventricular dilatation and significant hypoxemia Review of Systems General: Weakness Respiratory: Shortness of Breath Physical Examination - Vital Signs Temperature: 97.2 F Blood Pressure: 132/60 Pulse: 75 Respirations: 20 Pulse Ox (%): 97 - Physical Exam General: Alert, Moderate distress Respiratory: Clear to auscultation bilaterally - Studies Medications List Reviewed: Yes Assessment & Plan - Problems (Diagnosis) (1) Pulmonary embolus Current Visit: Yes Status: Acute Plan: Patient is 69 years of age admitted with significant bilateral emboli and a cor pulmonale with right ventricular dilatation of discuss with the patient she will benefit from t-PA of ordered 100 mg to be given over 2 hr patient has no risk factors for bleeding no recent surgery informed of the risk of bleeding including intracranial hemorrhage in GI bleeding Dc steroids use nebulizers on a p.r.n. basis Qualifiers: Acute cor pulmonale presence: with acute cor pulmonale
[2020-03-19] MEDS ORDERED: IPRATROPIUM BROM 0.5MG/2.5ML ONE (20:31)
[2020-03-19] MEDS ORDERED: ARFORMOTEROL TARTRATE 15 MCG/2 ML VIAL.NEB ONE (21:52)
[2020-03-19] MEDS ORDERED: HEPARIN/D5W 25,000 UNIT/500 ML BAG IV ONE (22:14)
[2020-03-19] MEDS ORDERED: FAMOTIDINE 20 MG TAB ONE (22:36)
[2020-03-20 07:41] LABS: Absolute Lymphocytes (CBC) 2.5 K/uL (0.7-4.9); Basophils % 0.3 % (0-1.3); Hematocrit 37.7 % (36.0-45.0); MPV 7.9 fL (7.6-11.3); RBC Red Blood Cell Count 3.15 M/uL (3.86-4.86)
[2020-03-20 07:54] LABS: BUN Blood Urea Nitrogen 20 mg/dL (7-18); Bicarbonate 29 mmol/L (21-32); Glucose Level 96 mg/dL (74-106); Magnesium 2.4 mg/dL (1.8-2.4); Potassium 4.2 mmol/L (3.5-5.1); Sodium Level 140 mmol/L (136-145)
[2020-03-20] MEDS ORDERED: FAMOTIDINE 20 MG TAB ONE (07:54)
[2020-03-20] MEDS ORDERED: FOLIC ACID 1 MG TABLET ONE (07:58)
[2020-03-20] MEDS ORDERED: NICOTINE 21 MG/PAT TD ONE (07:58)
[2020-03-20] MEDS: ARFORMOTEROL TARTRATE 15 MCG/2 ML VIAL.NEB NEB SCH (08:35)
[2020-03-20] MEDS: NICOTINE 21 MG/PAT TD SCH (08:42)
[2020-03-20] MEDS: FOLIC ACID 1 MG TABLET PO SCH (08:43)
[2020-03-20] MEDS: FAMOTIDINE 20 MG TAB PO SCH (08:43)
--- NOTE | 2020-03-20 08:54 | P.DS ---
Admission Date: 03/18/20 Discharge Date: 03/20/20 Primary Care Provider: Dr. Davis Disposition: ROUTINE DISCHARGE Discharge Condition: GOOD Reason for Admission: Pulmonary embolism Consultations: Pulmonary-Dr. Quiros Procedures: COVID: Negative ECHO: EF 66% 2 DIMENSIONAL ASSESSMENT: RIGHT ATRIUM: DILATED LEFT ATRIUM: NORMAL RIGHT VENTRICLE: DILATED LEFT VENTRICLE: NORMAL TRICUSPID VALVE: NORMAL MITRAL VALVE: NORMAL PULMONIC VALVE: NORMAL AORTIC VALVE: NORMAL PERICARDIAL EFFUSION: NONE AORTIC ROOT: NORMAL LEFT VENTRICULAR WALL MOTION: NORMAL DOPPLER/COLOR FLOW: COMMENTS: MILD PULMONARY HYPERTENSION. 40mmHg RIGHT VENTRICULAR SYSTOLIC PRESSURE. RIGHT VENTRICULAR ENLARGEMENT, RIGHT ATRIAL ENLARGEMENT. NORMAL LEFT VENTRICULAR SIZE AND SIZE. CT scan: FINDINGS: Pulmonary thromboembolism is present in both the left and right main pulmonary artery and distal branches. Evidence of mild right heart strain is seen. No acute aortic finding demonstrated. Mild COPD is present. Small right pleural effusion. Postsurgical changes are present about the stomach. IMPRESSION: Extensive bilateral pulmonary embolism is seen with right heart strain pattern. Small right pleural effusion with emphysematous changes noted. Medical Problem List: Dyspnea secondary to acute respiratory failure with hypoxia related to COPD exacerbation and bilateral extensive pulmonary embolism with mild pulmonary hypertension/small right pleural effusion GERD Tobacco abuse Brief History of Present Illness: 69-year-old female with history of COPD presented to the emergency room with increasing shortness of breath over the last several days. Patient was evaluated the emergency room. Patient found to be hypoxic. Elevated D- dimer was elevated. Patient was admitted for further evaluation and treatment. Hospital Course: Patient presented with Dyspnea secondary to acute respiratory failure with hypoxia related to COPD exacerbation and bilateral extensive pulmonary embolism with mild pulmonary hypertension. During the course of her stay patient was seen by pulmonology. Patient required high-flow oxygen. Echocardiogram showed pulmonary hypertension and right ventricular enlargement with right atrial enlargement. Pulmonology recommended tPA. Patient agreed. Patient responded well to tPA with improvement of respirations and O2 requirement. Patient was weaned off high-flow. Currently on nasal cannula. Patient without significant shortness of breath at this time. Pulmonology recommends chronic anti coagulation therapy likely indefinite. Etiology of pulmonary embolism unknown. At discharge home oxygen will be arranged to maintain sats above 93%. Patient currently on 1-2 L. will also arrange for the patient to continue with Eliquis 10 mg 1 pill twice daily for 7 days then 5 mg twice daily indefinitely. Education on pulmonary embolism will be provided. Recommend follow up with pulmonology in 1 week to follow up this hospitalization and continue her care. Pulmonology will wean off oxygen as an outpatient. Patient with underlying COPD. Patient will continue with COPD medication-Advair 1 puff twice daily and albuterol 2 puffs 3 times a day as needed for shortness of breath. Patient will continue with home oxygen as stated above. Recommend follow up with pulmonology as directed. Patient with GERD. At discharge she will continue with current medication- Protonix 40 mg daily. Patient with tobacco abuse. Tobacco cessation addressed in detail. Will provide nicotine patch to help with cessation. Vital Signs/Physical Exam: Temp Pulse Resp BP Pulse Ox 97.8 F 85 18 113/74 97 03/20/20 08:00 03/20/20 08:00 03/20/20 08:00 03/20/20 08:00 03/20/20 08:00 General: Alert, In no apparent distress, Oriented x3, Cooperative HEENT: Atraumatic Neck: Supple Respiratory: Clear to auscultation bilaterally, Normal air movement Cardiovascular: Normal pulses, Regular rate/rhythm Gastrointestinal: Normal bowel sounds, Soft and benign, Non-distended, No masses, No rebound, No guarding Neurological: Normal speech, Normal strength at 5/5 x4 extr, Normal tone, Normal affect Laboratory Data at Discharge: WBC 8.9 K/uL (4.3-10.9) D 03/20/20 07:30 Hgb 12.5 g/dL (12.0-15.0) 03/20/20 07:30 Hct 37.7 % (36.0-45.0) 03/20/20 07:30 Plt Count 188 K/uL (152-406) 03/20/20 07:30 PT 10.7 SECONDS (9.5-12.5) 03/18/20 04:12 INR 0.91 03/18/20 04:12 APTT 68.5 SECONDS (24.3-36.9) H 03/20/20 07:30 Sodium 140 mmol/L (136-145) 03/20/20 07:30 Potassium 4.2 mmol/L (3.5-5.1) 03/20/20 07:30 BUN 20 mg/dL (7-18) H 03/20/20 07:30 Creatinine 0.55 mg/dL (0.55-1.3) 03/20/20 07:30 Glucose 96 mg/dL (74-106) 03/20/20 07:30 Magnesium 2.4 mg/dL (1.8-2.4) 03/20/20 07:30 Total Bilirubin 0.8 mg/dL (0.2-1.0) 03/18/20 03:12 AST 50 U/L (15-37) H 03/18/20 03:12 ALT 31 U/L (12-78) 03/18/20 03:12 Alkaline Phosphatase 123 U/L (45-117) H 03/18/20 03:12 Home Medications: Pantoprazole [Protonix Tab*] 40 mg PO DAILY 03/18/20 Albuterol Sulfate [Proair Hfa] 2 puff IH TID PRN #1 hfa.aer.ad 03/20/20 Apixaban [Eliquis] 5 mg PO SEECOM #70 tablet 03/20/20 Fluticasone/Salmeterol [Advair 250-50 Diskus] 1 each IH BID #1 blst.w.dev 03/20/20 Folic Acid 1 mg PO DAILY #30 tablet 03/20/20 Nicotine [Nicoderm*] 21 mg TD DAILY #30 patch.td24 03/20/20 New Medications: Fluticasone/Salmeterol [Advair 250-50 Diskus] 1 each IH BID #1 blst.w.dev Apixaban [Eliquis] 5 mg PO SEECOM #70 tablet Folic Acid 1 mg PO DAILY #30 tablet Nicotine [Nicoderm*] 21 mg TD DAILY #30 patch.td24 Albuterol Sulfate [Proair Hfa] 2 puff IH TID PRN #1 hfa.aer.ad PRN Reason: Shortness Of Breath Patient Discharge Instructions: Recommend follow up with PCP in 1 week to follow up this hospitalization. Patient presented with Dyspnea secondary to acute respiratory failure with hypoxia related to COPD exacerbation and bilateral extensive pulmonary embolism with mild pulmonary hypertension. During the course of her stay patient was seen by pulmonology. Patient required high-flow oxygen. Echocardiogram showed pulmonary hypertension and right ventricular enlargement with right atrial enlargement. Pulmonology recommended tPA. Patient agreed. Patient responded well to tPA with improvement of respirations and O2 requirement. Patient was weaned off high-flow. Currently on nasal cannula. Patient without significant shortness of breath at this time. Pulmonology recommends chronic anti coagulation therapy likely indefinite. Etiology of pulmonary embolism unknown. At discharge home oxygen will be arranged to maintain sats above 93%. Patient currently on 1-2 L. will also arrange for the patient to continue with Eliquis 10 mg 1 pill twice daily for 7 days then 5 mg twice daily indefinitely. Education on pulmonary embolism will be provided. Recommend follow up with pulmonology in 1 week to follow up this hospitalization and continue her care. Pulmonology will wean off oxygen as an outpatient. Patient with underlying COPD. Patient will continue with COPD medication-Advair 1 puff twice daily and albuterol 2 puffs 3 times a day as needed for shortness of breath. Patient will continue with home oxygen as stated above. Recommend follow up with pulmonology as directed. Patient with GERD. At discharge she will continue with current medication-Protonix 40 mg daily. Patient with tobacco abuse. Tobacco cessation addressed in detail. Will provide nicotine patch to help with cessation. Diet: AHA Activity: Ad ana Followup: Trell Davis DO, DO [Primary Care Provider] - Time spent managing pt's care (in minutes): 55
[2020-03-20] MEDS ORDERED: APIXABAN 5 MG TABLET PO SCH (09:00)
--- NOTE | 2020-03-20 09:29 | RAD REPORT ---
EXAM DESCRIPTION: RAD - Chest Single View - 03/20/2020 6:41 am CLINICAL HISTORY: follow up COPD/PE Chest pain. COMPARISON: Chest Single View dated 03/18/2020; Chest Pa And Lat (2 Views) dated 01/19/2018; Chest Sing le View dated 06/27/2015; Chest For Pe Angio dated 03/18/2020 FINDINGS: Portable technique limits examination quality. The lungs are grossly clear. Trace bilateral pleural effusions. The heart is normal in size. No displ aced fractures. IMPRESSION: No acute intrathoracic process suspected.
[2020-03-20] MEDS ORDERED: APIXABAN 5 MG TABLET ONE (09:52)
--- NOTE | 2020-03-20 12:21 | P.PN ---
Subjective Date of Service: 03/20/20 Primary Care Provider: Dr. Davis Chief Complaint: Pulmonary embolism Patient is doing much better status post tPA in fact she improved after her infusion Review of Systems 10-point ROS is otherwise unremarkable Physical Examination - Vital Signs Temperature: 97.2 F Blood Pressure: 132/60 Pulse: 75 Respirations: 20 Pulse Ox (%): 97 - Studies Medications List Reviewed: Yes Assessment & Plan - Problems (Diagnosis) (1) Pulmonary embolus Current Visit: Yes Status: Acute Plan: Patient admitted with massive bilateral pulmonary embolism with right ventricular dilatation and strain status post t-PA improved significantly is non room-air oxygen plan to discharge her on lifelong Eliquis or Xarelto of inform the patient the she should not come off any of her anticoagulants the no restrictions activity as tolerated diet as tolerated stable for discharge patient has COPD agree with the bronchodilator follow-up with me in 2 weeks Qualifiers: Acute cor pulmonale presence: with acute cor pulmonale Physician Review Additional Text: Assessment Dyspnea secondary to acute respiratory failure with hypoxia related to COPD exacerbation and bilateral extensive pulmonary embolism with mild pulmonary hype rtension GERD Tobacco abuse Plan Dyspnea secondary to acute respiratory failure with hypoxia related to COPD exacerbation and bilateral extensive pulmonary embolism with mild pulmonary hypertension : Case discussed in detail with pulmonology. Patient stable on high-flow at 75%. Echo shows mild pulmonary hypertension. 40 mm Hg right ventricular systolic pressure noted. Right ventricular enlargement and right atrial enlargement noted. Pulmonology recommends tPA. Risks and benefits was addressed in detail with the patient. Patient understands the risks of bleeding. She has agreed especially since patient still requires high-flow. Will change Lovenox to heparin drip. Will transfer the patient to the ICU so that tPA can be given and monitored closely. Continue to wean off oxygen. Continue Solu-Medrol. Continue with COPD medication. Will continue to monitor closely. GERD: Continue medication Tobacco abuse: Will teach on tobacco cessation. Will provide nicotine patch as needed.
[2020-03-20 16:28] VITALS: BP 117/71; TEMP 98.4; O2SAT 95
== END 2020-03-20 18:19 | disposition home or self-care (01) | DRG 175 ==
LOC: ER 02:45 → ERHOLD 05:05 → 2ND 06:06 → OBSVTOIN 12:46 → ERHOLD 03-19 10:15
PROVIDERS: ADMIT Family Medicine; ATTEND Family Medicine
DX: I26.09 Other pulmonary embolism with acute cor pulmonale (principal); J96.01 Acute respiratory failure with hypoxia; J44.1 Chronic obstructive pulmonary disease with (acute) exacerbation; J90 Pleural effusion, not elsewhere classified; I27.24 Chronic thromboembolic pulmonary hypertension; K21.9 Gastro-esophageal reflux disease without esophagitis; I51.7 Cardiomegaly; F17.210 Nicotine dependence, cigarettes, uncomplicated; Z88.5 Allergy status to narcotic agent; Z88.8 Allergy status to other drugs, medicaments and biological substances; Z98.84 Bariatric surgery status; Z98.51 Tubal ligation status; Z90.49 Acquired absence of other specified parts of digestive tract; Z90.710 Acquired absence of both cervix and uterus; Z79.01 Long term (current) use of anticoagulants; Z79.899 Other long term (current) drug therapy; Z20.822 Contact with and (suspected) exposure to COVID-19
CPT/HCPCS: 0240U; 36415; 71045; 71275; 80048; 80076; 82728; 82805; 83605; 83735; 84145; 84484; 85025; 85379; 85610; 85730; 86140; 87040; 93005; 93306; 94002; 94003; 94640; 94760; 96365; 96366; 99285; G0378; J1644; J1650; J2920; J2997; J3475; J7040; J7605; J7606; Q9967

== ENCOUNTER 2020-05-14 11:37 | Emergency (ER) | payer OTHER ==
--- OUTSIDE RECORDS SUMMARY | 2020-05-14 11:41 | XMS REPORT | Continuity of Care Document ---
:1950 Author Organization [facility] t Address [address] [place] [address] Care Team Providers Name Role Phone Yassine Davis Primary Care Physician JERMAINE ROMO Attending Clinician Unavailable JERMAINE ROMO Admitting Clinician Unavailable Problems This patient has no known problems. Allergies, Adverse Reactions, Alerts Allergy Allergy Status Severity Reaction(s) Onset Inactive Treating Comm ents Source Name Type Date Date Clinician Adhesive Propensi Active Other (See [address] [facility] to Comments) 2 but paper Luke s - adverse 00:00: tape is Medical reaction 00 okay [place] s Aspirin Propensi Active Hives, Other [address] ty to (See [...] Date Quantity Comments Source Sex Assigned At [facility] Alcohol intake 2018-04-27 2018-04-27 Current drinker [facility] (finding) Cigarettes smoked 2018-04-27 2018-04-27 LEONID Nuñez - current (pack per 00:00:00 00:00:00 [facility] day) - Reported Cigarette 2018-04-27 2018-04-[address] [facility] - pack-years 00:00:00 00:00:00 [facility] Tobacco use and 2018-04-27 2018-04-[address] [facility] - exposure 00:00:00 00:00:00 [facility] Smoking Status Start Date Stop Date Source Current every day smoker 2018-04-27 00:00:[address] [facility] Medications Ordered Filled Start Stop Current Ordering Indication Dosage Frequency Signature Comments Components Source Medication Medication Date Date Medication? Clinician (SIG) Name Name pantoprazol 2019- Yes 40mg QD Take [address] [facility] 2-14 by mouth [facility] - (PROTONIX) 17:06: daily. Medic al 40 MG Center tablet Procedures This patient has no [...] 00:00:00 (1 of 1 - Medical Center [id number] PCV13) [code = PNEUMOCOCCAL 65+ YRS (1 of 1 - [id number] PCV13)] Future Scheduled [address] [facility] - Test 00:00:00 [facility] [code = 723914488] Future Scheduled [address] [facility] - Test 00:00:00 [facility] colon (procedure) [code = 939898165] Results Test Description Test Time Test Comments Results Result Comments Source TISSUE EXAM 2018-04-30 Surgical Pathology 14:56:00 Report Case: [id number] Authorizing Provider: Ilene Romo Collected: 04/26/2018 1349 MD Derek Ordering Location: [facility] Endoscopy Received: 04/26/2018 1550 Services Pathologist: [...] ADENOMATOUS EPITHELIUM Signing Pathologist Direct Phone Line: [phone] nically signed by Nicki Hall MD on 04/30/2018 at 2:56 [id number] of colon A. Hepatic flexure polyp ESD. [...]
[2020-05-14 13:42] LABS: SARS-COV-2 RT PCR POSITIVE (NEGATIVE)
--- NOTE | 2020-05-14 14:22 | EDPHYS ---
Physician Documentation [facility] Name: Lety Benson Age: 70 yrs Sex: Female : 1950 Arrival Date: 05/14/2020 Time: 11:44 Bed 14 Private MD: ED Physician Gustavo Kraft HPI: 05/14 14:17 This 70 yrs old Female presents to ER via Ambulatory with complaints of kdr Cough, Congestion, Headache, General Weakness. 14:17 The patient or guardian reports cough, that is intermittent, difficulty breathing, flu kdr symptoms, arthralgias, myalgias, no appetite. Onset: The symptoms/episode began/occurred gradually, 3 day(s) ago. Severity of symptoms: At their worst the symptoms were mild, in the emergency department the symptoms are unchanged. Modifying factors: The symptoms are alleviated by nothing, the symptoms are aggravated by exertion. Associated signs and symptoms: Pertinent positives: Generalized weakness and congestion . The patient has not experienced similar symptoms in the past. The patient has not recently seen a physician. was admitted with COVID last night. Historical: - Allergies: 11:55 Codeine; ll1 - PMHx: 11:55 blood thinner-blood clots to both lungs; ll1 - PSHx: 11:55 Gastric Bypass; ll1 - Immunization history:: Flu vaccine is not up to date. - Social history:: Smoking status: Patient/guardian denies using tobacco, Stopped _ months ago 2. ROS: 14:17 Constitutional: Negative for fever, chills, and weight loss, and general malaise Eyes: kdr Negative for injury, pain, redness, and discharge, ENT: Negative for injury, pain, and discharge, Neck: Negative for injury, pain, and swelling, Cardiovascular: Negative for chest pain, palpitations, and edema, Abdomen/GI: Negative for abdominal pain, nausea, vomiting, diarrhea, and constipation, Back: Negative for injury and pain, : Negative for injury, bleeding, discharge, and swelling, MS/Extremity: Negative for injury and deformity, Skin: Negative for injury, rash, and discoloration, Neuro: Negative for headache, weakness, numbness, tingling, and seizure activity. Psych: Negative for depression, anxiety, suicide ideation, homicidal ideation, and hallucinations, Allergy/Immunology: Negative for hives, rash, and allergies, Endocrine: Negative for neck swelling, polydipsia, polyuria, polyphagia, and marked weight changes, Hematologic/Lymphatic: Negative for swollen nodes, abnormal bleeding, and unusual bruising. 14:17 Respiratory: Positive for cough, "sounds productive", dyspnea on exertion, shortness of breath, at rest. Exam: 14:17 Constitutional: This is a well developed, well nourished patient who is awake, alert, kdr and in no acute distress. Head/Face: Normocephalic, atraumatic. Eyes: Pupils equal round and reactive to light, extra-ocular motions intact. Lids and lashes normal. Conjunctiva and sclera are non-icteric and not injected. Cornea within normal limits. Periorbital areas with no swelling, redness, or edema. Neck: Trachea midline, no thyromegaly or masses palpated, and no cervical lymphadenopathy. Supple, full range of motion without nuchal rigidity, or vertebral point tenderness. No Meningismus. Chest/axilla: Normal chest wall appearance and motion. Nontender with no deformity. No lesions are appreciated. Cardiovascular: Regular rate and rhythm with a normal S1 and S2. No gallops, murmurs, or rubs. Normal PMI, no JVD. No pulse deficits. Respiratory: Lungs have equal breath sounds bilaterally, clear to auscultation and percussion. No rales, rhonchi or wheezes noted. No increased work of breathing, no retractions or nasal flaring. Abdomen/GI: Soft, non-tender, with normal bowel sounds. No distension or tympany. No guarding or rebound. No evidence of tenderness throughout. Back: No spinal tenderness. No costovertebral tenderness. Full range of motion. Skin: Warm, dry with normal turgor. Normal color with no rashes, no lesions, and no evidence of cellulitis. MS/ Extremity: Pulses equal, no cyanosis. Neurovascular intact. Full, normal range of motion. Neuro: Awake and alert, GCS 15, oriented to person, place, time, and situation. Cranial nerves II-XII grossly intact. Motor strength 5/5 in all extremities. Sensory grossly intact. Cerebellar exam normal. Normal gait. Psych: Awake, alert, with orientation to person, place and time. Behavior, mood, and affect are within normal limits. Vital Signs: 11:52 BP 141 / 86; Pulse 89; Resp 18; Temp 98.8; Pulse Ox 97% on R/A; Weight 77.11 kg; Height ll1 5 ft. 3 in. (160.02 cm); Pain 0/10; 13:54 BP 119 / 62; Pulse 75; Resp 19; Pulse Ox 95% ; jl7 14:20 Pulse 84; Pulse Ox 98% on R/A; jp3 14:25 Pulse 111; Pulse Ox 95% on R/A; jp3 14:27 Pulse 85; Pulse Ox 98% on R/A; jp3 16:18 BP 115 / 65; Pulse 76; Resp 17; Pulse Ox 96% ; jl7 11:52 Body Mass Index 30.11 (77.11 kg, 160.02 cm) ll1 14:[address] Lewis instruction: patient was ambulated around nurses station with portable jp3 pulse ox. Patient pulse robert from 84 to 111 beats by the ne dof the walk. Oxygen saturation dropped to 95 and settled. Pt reported feeling short of breath but not as bad as they felt back in March. Pt pulse and oxygen saturation returned to previous levels prior to ambulation. MDM: 14:17 Data reviewed: vital signs, nurses notes, lab test result(s), radiologic studies. kdr Counseling: I had a detailed discussion with the patient and/or guardian regarding: the historical points, exam findings, and any diagnostic results supporting the discharge/admit diagnosis, lab results, radiology results, the need for outpatient follow up. 14:22 Patient medically screened. kdr 05/14 13:43 Order name: COVID-19/FLU A+B; Complete Time: 14:16 EDMS 05/14 14:39 Order name: CXR XRAY; Complete Time: 15:59 kdr Administered Medications: No medications were administered Disposition: 05/14/20 14:22 Discharged to Home. Impression: SARS-associated coronavirus as the cause of diseases classified elsewhere, Shortness of breath. - Condition is Stable. - Discharge Instructions: Shortness of Breath, [id number], COVID-19. - Prescriptions for Albuterol Sulfate 90 mcg/actuation - inhale 1-2 puff by INHALATION route every 4-6 hours; 1 Inhaler. prednisone 10 mg Oral tablet - take 2 tablet by ORAL route 2 times per day for 5 days Then take one tablet two times a day for five days. Disp QS; 1 Kit. - Medication Reconciliation Form, Thank You Letter form. - Follow up: Private Physician; When: 2 - 3 days; Reason: If symptoms return, Further diagnostic work-up, Recheck today's complaints, Continuance of care, Re-evaluation by your physician. - Problem is new. - Symptoms have improved. Signatures: Dispatcher [employer] EDGA Gustavo Kraft MD MD [facility] Tomasz Rose RN RN jl7 Yoel Rankin RN RN ll1 Corrections: (The following items were deleted from the chart) 11:56 11:55 Social history: Smoking status: Patient denies any tobacco usage or history of. 1 ll1 12:52 12:30 CORONAVIRUS+MR.LAB.BRZ ordered. [facility] 12:53 12:30 Influenza Screen (A \\T\\ B)+BA.LAB.BRZ ordered. [facility] 16:19 14:22 05/14/2020 14:22 Discharged to Home. Impression: SARS-associated coronavirus as jl7 the cause of diseases classified elsewhere; Shortness of breath. Condition is Stable. Forms are Medication Reconciliation Form, Thank You Letter, Antibiotic Education, Prescription Opioid Use. Follow up: Private Physician; When: 2 - 3 days; Reason: If symptoms return, Further diagnostic work-up, Recheck today's complaints, Continuance of care, Re-evaluation by your physician. Problem is new. Symptoms have improved. kdr
--- NOTE | 2020-05-14 14:22 | ER ---
Nurse's Notes [facility] Name: Lety Benson Age: 70 yrs Sex: Female : 1950 Arrival Date: 05/14/2020 Time: 11:44 Bed 14 Private MD: Diagnosis: SARS-associated coronavirus as the cause of diseases classified elsewhere;Shortness of breath Presentation: 05/14 11:52 Chief complaint: Patient states: Cough, congestion, MONTANEZ, weakness, slight diarrhea. ll1 is admitted, covid positive. Coronavirus screen: Client denies travel out of the [place] in the last 14 days. congestion, cough unrelated to allergies, fatigue, Client presents with at least one sign or symptom that may indicate coronavirus-19. Standard/surgical mask placed on the client. Ebola Screen: Patient denies travel to an Ebola-affected area in the 21 days before illness onset. Resp Distress? No respiratory distress is noted at this time. Initial Sepsis Screen: Does the patient meet any 2 criteria? No. Patient's initial sepsis screen is negative. Does the patient have a suspected source of infection? Yes: Productive cough/pneumonia. Risk Assessment: Do you want to hurt yourself or someone else? Patient reports no desire to harm self or others. Onset of symptoms was April 30, 2020. 11:52 Method Of Arrival: Ambulatory [facility] 11:52 Acuity: COOPER 3 ll1 Historical: - Allergies: 11:55 Codeine; ll1 - PMHx: 11:55 blood thinner-blood clots to both lungs; ll1 - PSHx: 11:55 Gastric Bypass; ll1 - Immunization history:: Flu vaccine is not up to date. - Social history:: Smoking status: Patient/guardian denies using tobacco, Stopped _ months ago 2. Screenin:30 Abuse screen: Denies threats or abuse. Denies injuries from another. Nutritional jl7 screening: No deficits noted. Tuberculosis screening: No symptoms or risk factors identified. Fall Risk None identified. Assessment: 12:10 General: Appears in no apparent distress. uncomfortable, Behavior is calm, cooperative, jl7 appropriate for age. Pain: Denies pain. Neuro: Level of Consciousness is awake, alert, obeys commands, Oriented to person, place, time, situation. Cardiovascular: Patient's skin is warm and dry. Respiratory: Airway is patent Respiratory effort is even, unlabored, Respiratory pattern is regular, symmetrical. Derm: Skin is pink, warm \T\ dry. 13:30 Reassessment: Patient appears in no apparent distress at this time. No changes from jl7 previously documented assessment. Patient and/or family updated on plan of care and expected duration. Pain level reassessed. Patient is alert, oriented x 3, equal unlabored respirations, skin warm/dry/pink. 14:56 Reassessment: Pt will be discharged once x-ray is read. jl7 Vital Signs: 11:52 BP 141 / 86; Pulse 89; Resp 18; Temp 98.8; Pulse Ox 97% on R/A; Weight 77.11 kg; Height ll1 5 ft. 3 in. (160.02 cm); Pain 0/10; 13:54 BP 119 / 62; Pulse 75; Resp 19; Pulse Ox 95% ; jl7 14:20 Pulse 84; Pulse Ox 98% on R/A; jp3 14:25 Pulse 111; Pulse Ox 95% on R/A; jp3 14:27 Pulse 85; Pulse Ox 98% on R/A; jp3 16:18 BP 115 / 65; Pulse 76; Resp 17; Pulse Ox 96% ; jl7 11:52 Body Mass Index 30.11 (77.11 kg, 160.02 cm) ll1 14:[address] Lewis instruction: patient was ambulated around nurses station with portable jp3 pulse ox. Patient pulse robert from 84 to 111 beats by the ne dof the walk. Oxygen saturation dropped to 95 and settled. Pt reported feeling short of breath but not as bad as they felt back in March. Pt pulse and oxygen saturation returned to previous levels prior to ambulation. ED Course: 11:44 Patient arrived in ED. mr 11:54 Triage completed. ll1 11:56 Arm band placed on Patient placed in an exam room, on a stretcher. ll1 12:22 Gustavo Kraft MD is Attending Physician. kdr 12:30 Patient has correct armband on for positive identification. Bed in low position. Call [facility] light in reach. Side rails up X 1. Pulse ox on. NIBP on. Warm blanket given. 12:47 COVID swab sent to lab. Flu and/or RSV swab sent to lab. Patient maintains SpO2 jp3 saturation greater than 95% on room air. 13:53 Tomasz Rose, RN is Primary Nurse. jl7 15:05 CXR XRAY In Process Unspecified. EDMS 16:19 No provider procedures requiring assistance completed. Patient did not have IV access jl7 during this emergency room visit. Administered Medications: No medications were administered Outcome: 14:22 Discharge ordered by . kdr 16:19 Discharged to home ambulatory. jl7 16:19 Condition: stable 16:19 Discharge instructions given to patient, Instructed on discharge instructions, follow up and referral plans. medication usage, Demonstrated understanding of instructions, follow-up care, medications, Prescriptions given X 2. 16:19 Patient left the ED. jl7 Signatures: Dispatcher [employer] EDMA Gustavo Kraft MD MD kdr Rivera, Mary mr Tomasz Rose, RN RN jl7 George Hendricks jp3 Yoel Rankin RN RN ll1 Corrections: (The following items were deleted from the chart) 11:56 11:55 Social history: Smoking status: Patient denies any tobacco usage or history of. ll1 ll1
--- NOTE | 2020-05-14 15:30 | RAD REPORT ---
EXAM DESCRIPTION: RAD - Chest Single View - 05/14/2020 3:06 pm CLINICAL HISTORY: COUGH Chest pain. COMPARISON: Chest Single View dated 03/20/2020; Chest Single View dated 03/18/2020; Chest Pa And Lat (2 Views) dated 01/19/2018; Chest Single View dated 06/27/2015 FINDINGS: Portable technique limits examination quality. The lungs are emphysematous but grossly clear. The heart is normal in size. No displaced fractures. IMPRESSION: No acute intrathoracic process suspected.
[2020-05-14 17:17] VITALS: TEMP 98.8
[2020-05-14 17:22] VITALS: BP 115/65; O2SAT 96
== END 2020-05-14 16:19 | disposition home or self-care (01) ==
LOC: ER 11:37
DX: U07.1 COVID-19 (principal); Z98.84 Bariatric surgery status; Z87.891 Personal history of nicotine dependence
CPT/HCPCS: 0240U; 71045; 99284

== ENCOUNTER → 2023-03-31 | Emergency (ER) | payer OTHER ==
[~2023-03-31] MED LIST: CEFTRIAXONE 1000 MG/VIAL ONE; ONDANSETRON 4 MG/2 ML VIAL ONE
[2023-03-31 09:58] LABS: Hematocrit 35.4 % (36.0-45.0); Lymphocytes % 6.9 % (15.3-44.8); MPV 6.8 fL (7.6-11.3); Platelets 360 thou/uL (152-406); RBC Red Blood Cell Count 2.83 M/uL (3.86-4.86)
[2023-03-31 10:20] LABS: Albumin 1.8 g/dL (3.4-5.0); Bilirubin Total 8.5 mg/dL (0.2-1.0); Potassium 3.5 mEq/L (3.5-5.1); Protein, Total 6.6 g/dL (6.4-8.2)
--- NOTE | 2023-03-31 10:57 | RAD REPORT ---
EXAM DESCRIPTION: CT - Abdomen Pelvis W Contrast - 03/31/2023 10:36 am CLINICAL HISTORY: Abdominal pain COMPARISON: 2018 TECHNIQUE: Computed axial tomography of the abdomen pelvis was obtained. 100 cc Isovue-300 was admin istered intravenously. Oral contrast was not requested which limits evaluation of bowel and appendix All CT scans are performed using dose optimization technique as appropriate and may include automated exposure control or mA/KV adjustment according to patient size. FINDINGS: Small pleural effusions Fatty liver. Left lobe of liver is small presumably secondary to prior surgery Atrophic pancreas. Spleen, adrenals and kidneys unremarkable Hysterectomy. No adnexal mass Gastric bypass. Cholecystectomy Right hemicolectomy. No obstruction. No omental/mesenteric nodules. Atherosclerosis Small to moderate amount of ascites within the right abdomen and right pelvis. Diffuse edema within t he subcutaneous tissues IMPRESSION: Right hemicolectomy Small to moderate amount of ascites within the right abdomen and right pelvis
--- NOTE | 2023-03-31 11:00 | RAD REPORT ---
EXAM DESCRIPTION: Pete Single View03/31/2023 10:40 am CLINICAL HISTORY: Chest pain COMPARISON: 2020 FINDINGS: Small bilateral pleural effusions. The lungs appear clear of acute infiltrate. The heart is normal size
[2023-03-31 11:32] LABS: Blood Morphology Comment NOTED (NOT SEEN); Macrocytosis 3+; Platelet Estimate ADEQ; White Blood Cell Scan OK (OK)
[2023-03-31 12:14] LABS: Urine Bacteria 20-50 /HPF (<20); Urine Bilirubin 2+ (Negative); Urine Blood Negative (Negative); Urine Clarity Extremely Turbid (Clear); Urine Color Dark-Orange (Yellow); Urine Glucose NEGATIVE (Negative); Urine Mucus 1+ /HPF (None Seen); Urine Protein 1+ (Negative); Urine Urobilinogen 4+ (Over) (Normal)
[2023-03-31 12:15] LABS: Specific Gravity > 1.030 (1.005-1.030)
--- NOTE | 2023-03-31 12:35 | RAD REPORT ---
EXAM DESCRIPTION: US - Liver Only - 03/31/2023 11:25 am CLINICAL HISTORY: Elevated bili remain COMPARISON: CT abdomen March 31, 2023 FINDINGS: The liver has an increased echotexture. Hepatopetal flow. A lesion is not visualized. Bili [place] tree normal caliber The spleen measures 11 centimeters with a normal echotexture IMPRESSION: Fatty liver
--- NOTE | 2023-03-31 13:16 | EDPHYS ---
Physician Documentation [facility] Name: Lety Benson Age: 72 yrs Sex: Female : 1950 Arrival Date: 03/31/2023 Time: 09:04 Bed 13 Private MD: ED Physician Randy Faria HPI: 03/31 09:24 This 72 yrs old Female presents to ER via Unassigned with complaints of ec2 General Weakness. 09:24 Patient arrives today for evaluation of decreased p.o. intake, nausea, diarrhea as well ec2 as general weakness. Patient has been experiencing the symptoms for the past week. Patient with general fatigue. Denies any fevers or chills, denies cough and cold symptoms, denies any urinary complaints. Additionally family also reports concern for significant alcohol use.. Historical: - Allergies: 09:34 Codeine; cp4 - PMHx: :34 blood thinner-blood clots to both lungs; cp4 - Immunization history:: Adult Immunizations up to date. - Social history:: Smoking status: Patient denies any tobacco usage or history of. ROS: 09:24 Constitutional: as per hpi ec2 Exam: 09:24 Constitutional: GEN: NAD Head: atraumatic Eyes: EOMI Ears: External ears are ec2 normal. CV: regular rate LUNGS: no respiratory distress ABD: Distended, soft, nontender, not guarding, not rigid SKIN: no evidence of rashes, jaundice appearance MSK: no evidence of trauma NEURO: moves all extremities equally Vital Signs: 09:12 BP 130 / 56; Pulse 84; Resp 18; Temp 98.4; Pulse Ox 99% ; Weight 95.25 kg; Height 5 ft. cp4 3 in. ; 12:03 BP 130 / 56; Pulse 84; Resp 18; Pulse Ox 99% ; cp4 13:00 BP 98 / 58; Pulse 79; Resp 18; Pulse Ox 100% ; cp4 14:00 BP 109 / 65; Pulse 79; Resp 18; Pulse Ox 99% ; cp4 15:00 BP 111 / 58; Pulse 79; Resp 18; Pulse Ox 100% ; cp4 15:47 BP 1 / ???; cp4 16:00 BP 106 / 60; Pulse 83; Resp 18; Pulse Ox 100% ; cp4 17:00 BP 109 / 56; Pulse 77; Resp 18; Pulse Ox 100% ; cp4 18:00 BP 109 / 74; Pulse 79; Resp 18; Pulse Ox 98% ; cp4 09:12 Body Mass Index 37.20 (95.25 kg, 160.02 cm) cp4 Procedures: 13:41 Paracentesis: The risks and benefits of the procedure were discussed with the patient ec2 or guardian in detail, aseptic technique was employed throughout the procedure, the catheter was placed in the right lower quadrant, appoximately .03 liters of fluid was removed, the fluid was serous, the patient tolerated the procedure well, the patient did not experience any apparent complications. MDM: 09:23 Patient medically screened. ec2 09:24 ED course: Patient arrives today for evaluation of decreased p.o. intake with fatigue. ec2 Examination remarkable for abdominal and skin findings as noted above. Will obtain lab work, CT imaging and further assess the patient. Currently considering process such as hepatitis, urinary tract infection, pneumonia. . 09:38 Data reviewed: vital signs. ec2 10:28 ED course: Metabolic profile is reassuring, total bilirubin is elevated to a level of ec2 8.5. Lipase is within normal ranges, CBC shows slight leukocytosis of 14.5. . 11:02 ED course: CT abdomen pelvis shows moderate amount of ascites, chest x-ray shows small ec2 bilateral pleural effusions. . 11:43 ED course: Patient does report some mild abdominal discomfort as well. Will perform ec2 paracentesis of the peritoneal fluid to send for evaluation.. 12:47 ED course: Urine is contaminated, not overtly infectious appearing. Wet prep is ec2 negative for any process. Ultrasound the liver shows a fatty liver. . 13:15 ED course: Patient with ascites, I performed a bedside ultrasound myself was able to ec2 remove approximately 30 cc of yellow-colored fluid, additionally I empirically treated her for spontaneous bacterial peritonitis as well. Given the marked bilirubin abnormalities and the patient's jaundice color, I will transfer the patient for GI services. Pending transfer.. 15:07 ED course: [facility] declines transfer, GI does not feel this is GI related..ec2 17:29 ED course: Discussed the case with transferring physician at [place] [id number] downw and they agreed accept patient for admission. Family updated on the plan of care.. 03/31 09:24 Order name: CBC with Diff; Complete Time: 11:38 [facility] 03/31 09:24 Order name: CMP; Complete Time: 10:28 [facility] 03/31 09:24 Order name: Lipase; Complete Time: 10:28 [facility] 03/31 09:24 Order name: Urinalysis w/ reflexes; Complete Time: 12:46 [facility] 03/31 10:02 Order name: CBC Smear Scan; Complete Time: 11:38 [facility] 03/31 11:04 Order name: Wet Prep; Complete Time: 12:46 [facility] 03/31 11:45 Order name: Body Fluid Cell Count; Complete Time: 17:24 [facility] 03/31 11:45 Order name: Anaerobic Culture [facility] 03/31 11:45 Order name: Body Fluid Culture [facility] 03/31 11:45 Order name: Gram Stain [facility] 03/31 12:47 Order name: Bilirubin, Direct; Complete Time: 17:24 [facility] 03/31 12:52 Order name: Lactate w/ 2H reflex if indic.; Complete Time: 17:24 [facility] 03/31 12:52 Order name: Blood Culture Adult (2) [facility] 03/31 13:56 Order name: Body Fluid Culture [facility] 03/31 13:56 Order name: Anaerobic Culture [facility] 03/31 09:24 Order name: CT Abd/Pelvis - IV Contrast Only; Complete Time: 11:02 [facility] 03/31 09:26 Order name: CXR XRAY; Complete Time: 11:02 [facility] 03/31 11:12 Order name: Liver Only; Complete Time: 12:46 [facility] 03/31 09:24 Order name: IV Saline Lock; Complete Time: 09:46 [facility] 03/31 09:24 Order name: Labs collected and sent; Complete Time: 09:46 [facility] 03/31 11:02 Order name: Cath; Complete Time: 11:50 [facility] 03/31 13:15 Order name: PO challenge; Complete Time: 14:30 ec2 Administered Medications: 10:20 Drug: Ondansetron IVP 4 mg IVP once; over 2 minutes Route: IVP; Site: right antecubital;cp4 16:56 Follow up: Response: No adverse reaction cp4 15:17 Drug: Rocephin IV 1 grams IV at calculated rate once; Given slow IV push per pharmacy cp4 instructions Route: IV; Rate: calculated rate; Site: left hand; 15:47 Follow up: BP 1 / ??? cp4 15:47 Follow up: Response: No adverse reaction; IV Status: Completed infusion cp4 Disposition Summary: 03/31/23 13:15 Transfer Ordered Notes: Transfer Location: Other Acute Care Facility ec2 Reason: Higher level of care ec2 Condition: Stable ec2 Problem: new ec2 Symptoms: are unchanged ec2 Accepting Physician: transferring doc(03/31/23 20:00) cp4 Diagnosis - Spontaneous bacterial peritonitis ec2 - Weakness ec2 - Disorder of bilirubin metabolism, unspecified ec2 - Fatty (change of) liver, not elsewhere classified ec2 Forms: - Medication Reconciliation Form ec2 - SBAR form ec2 Signatures: Dispatcher [employer] Randy Zavaleta MD MD ec2 Marielena Alexis cp4 Corrections: (The following items were deleted from the chart) 09:38 09:24 Patient arrives today for evaluation of decreased p.o. intake, nausea, diarrhea ec2 as well as general weakness. Patient has been experiencing the symptoms for the past week. Patient with general fatigue. Denies any fevers or chills, denies cough and cold symptoms, denies any urinary complaints.. ec2 11:12 10:30 Abdomen Limited+US.RAD.BRZ ordered. EDOH EDOH 20:00 13:15 transferring doc ec2 cp4
--- NOTE | 2023-03-31 13:16 | ER ---
Nurse's Notes [facility] Name: Lety Benson Age: 72 yrs Sex: Female : 1950 Arrival Date: 03/31/2023 Time: 09:04 Bed 13 Private MD: Diagnosis: Spontaneous bacterial peritonitis;Weakness;Disorder of bilirubin metabolism, unspecified;Fatty (change of) liver, not elsewhere classified Presentation: 03/31 09:12 Chief complaint: Patient states: weakness and abdominal pain. cp4 09:12 Coronavirus screen: Client denies travel out of the [place] in the last 14 days. At this cp4 time, the client does not indicate any symptoms associated with coronavirus-19. Ebola Screen: Patient negative for fever greater than or equal to 101.5 degrees Fahrenheit, and additional compatible Ebola Virus Disease symptoms. Initial Sepsis Screen: Does the patient meet any 2 criteria? No. Patient's initial sepsis screen is negative. Does the patient have a suspected source of infection? No. Patient's initial sepsis screen is negative. Risk Assessment: Do you want to hurt yourself or someone else? Patient reports no desire to harm self or others. Onset of symptoms was March 31, 2023. 09:12 Method Of Arrival: Ambulatory cp4 09:12 Acuity: COOPER 3 cp4 Triage Assessment: :34 General: Appears in no apparent distress. Behavior is calm, cooperative, appropriate cp4 for age. Pain: Complains of pain in abdomen. Historical: - Allergies: 09:34 Codeine; cp4 - PMHx: :34 blood thinner-blood clots to both lungs; cp4 - Immunization history:: Adult Immunizations up to date. - Social history:: Smoking status: Patient denies any tobacco usage or history of. Screenin:34 [facility] ED Fall Risk Assessment (Adult) History of falling in the last 3 months, cp4 including since admission No falls in past 3 months (0 pts) Confusion or Disorientation No (0 pts) Intoxicated or Sedated No (0 pts) Impaired Gait No (0 pts) Mobility Assist Device Used No (0 pt) Altered Elimination No (0 pt) Score/Fall Risk Level 0 - 2 = Low Risk Oriented to surroundings, Maintained a safe environment, Educated pt \T\ family on fall prevention, incl call for assistance when getting out of bed, Assessed \T\ reinforced patient's understanding of fall precautions, Provided non-skid footwear, Hourly rounding (assess needs \T\ fall precautionary measures) done. Abuse screen: Denies threats or abuse. Nutritional screening: No deficits noted. Tuberculosis screening: No symptoms or risk factors identified. Assessment: 09:34 Reassessment: No changes from previously documented assessment. cp4 13:31 Reassessment: Unable to get blood cultures after multiple sticks. Inside lab notified cp4 and stated they would get them. Vital Signs: 09:12 BP 130 / 56; Pulse 84; Resp 18; Temp 98.4; Pulse Ox 99% ; Weight 95.25 kg; Height 5 ft. cp4 3 in. ; 12:03 BP 130 / 56; Pulse 84; Resp 18; Pulse Ox 99% ; cp4 13:00 BP 98 / 58; Pulse 79; Resp 18; Pulse Ox 100% ; cp4 14:00 BP 109 / 65; Pulse 79; Resp 18; Pulse Ox 99% ; cp4 15:00 BP 111 / 58; Pulse 79; Resp 18; Pulse Ox 100% ; cp4 15:47 BP 1 / ???; cp4 16:00 BP 106 / 60; Pulse 83; Resp 18; Pulse Ox 100% ; cp4 17:00 BP 109 / 56; Pulse 77; Resp 18; Pulse Ox 100% ; cp4 18:00 BP 109 / 74; Pulse 79; Resp 18; Pulse Ox 98% ; cp4 09:12 Body Mass Index 37.20 (95.25 kg, 160.02 cm) cp4 ED Course: 09:08 Patient arrived in ED. im 09:08 Randy Faria MD is Attending Physician. ec2 09:18 Marielena Alexis is Primary Nurse. cp4 09:34 Triage completed. cp4 09:34 Arm band placed on right wrist. Patient placed in waiting room. cp4 09:34 Bed in low position. Call light in reach. Side rails up X2. cp4 09:34 No provider procedures requiring assistance completed. cp4 09:46 CBC with Diff Sent. cp4 09:46 CMP Sent. cp4 09:46 Lipase Sent. cp4 09:46 Urinalysis w/ reflexes Sent. cp4 09:46 Urine collected: clean catch specimen, tea colored. aw1 10:37 CT Abd/Pelvis - IV Contrast Only In Process Unspecified. EDMS 10:41 CXR XRAY In Process Unspecified. EDMS 11:23 Liver Only In Process Unspecified. EDMS 11:50 Wet Prep Sent. cp4 12:15 Inserted saline lock: 24 gauge in left wrist, using aseptic technique. cp4 13:21 initiated a transfer with Blaise from the [facility] are all on GI closure and will have to decline the patient in transfer. 13:28 Anaerobic Culture Sent. cp4 13:28 Body Fluid Culture Sent. cp4 13:29 initiated a transfer with Janine Gillette Rn with the [facility]. eb 13:29 Gram Stain Sent. cp4 13:29 Body Fluid Cell Count Sent. cp4 15:05 per Janine the GI and Hospitalist regional sales representative for [facility] do not feel this patient needs to be transferred they are declining/ She will try [facility]. 16:53 Blood Culture Adult (2) Sent. cp4 16:56 Body Fluid Culture Sent. cp4 16:56 Anaerobic Culture Sent. cp4 17:38 administrative approval given by Janine Gillette Rn/ patient has been accepted to [facility] room 1505/ Dr. Abdirizak Weiss has accepted the patient in transfer / report to to be called to [phone]. 18:18 Provided Education on: transfer. cp4 18:20 Patient transferred, IV remains in place. cp4 18:23 [facility] called eta one hour and a half. eb Administered Medications: 10:20 Drug: Ondansetron IVP 4 mg IVP once; over 2 minutes Route: IVP; Site: right antecubital;cp4 16:56 Follow up: Response: No adverse reaction cp4 15:17 Drug: Rocephin IV 1 grams IV at calculated rate once; Given slow IV push per pharmacy cp4 instructions Route: IV; Rate: calculated rate; Site: left hand; 15:47 Follow up: BP 1 / ??? cp4 15:47 Follow up: Response: No adverse reaction; IV Status: Completed infusion cp4 Medication: 09:34 VIS not applicable for this client. cp4 Outcome: 13:15 ER care complete, transfer ordered by MD. ec2 18:20 Transferred by ground EMS to [facility], [facility], Transfer form completed. cp4 X-rays sent w/ patient. 18:20 Condition: stable 18:20 Instructed on the need for transfer, Demonstrated understanding of instructions, 20:00 Patient left the ED. cp4 Signatures: Dispatcher [employer] EDMS Fanny Pollock Itzel im Warren, Alyssa aw1 Randy Faria MD MD ec2 Marielena Alexis cp4 Corrections: (The following items were deleted from the chart) 18:20 12:15 Inserted saline lock: 24 gauge in left wrist, using aseptic technique. Patient cp4 transferred, IV remains in place. cp4
[2023-03-31 14:26] LABS: Appearance SLT. TURBID (CLEAR); Body Fluid Source PERITONEAL; Body Fluid WBC 60 /mm^3; Color of fluid Yellow (COLORLESS)
[2023-04-01 00:04] VITALS: TEMP 98.4
[2023-04-01 00:34] VITALS: BP 109/74; O2SAT 98
== END ==
LOC: ER 09:04
DX: R53.1 Weakness (principal); K65.2 Spontaneous bacterial peritonitis; K76.0 Fatty (change of) liver, not elsewhere classified; E80.7 Disorder of bilirubin metabolism, unspecified; Z88.5 Allergy status to narcotic agent
CPT/HCPCS: 96365; 87040 ×2; 87070; 85025; 81001; 36415; 89050; 87205; 87210; 83605; 87075; 82248; 83690; 80053; 74177; 71045; 76705; 96375; 99285; Q9967; J2405; J0696

== ENCOUNTER → 2023-04-18 | Emergency (ER) | payer OTHER ==
[~2023-04-18] MED LIST changes: +CIPROFLOXACIN 400mg IV 400 MG/200 ML BAG IV ONE; +METRONIDAZOLE 500mg IVPB 500 MG/100 ML BAG IV ONE; +NA CHLORIDE 0.9% 1,000 ML ONE; +NA CHLORIDE 0.9% 100 ML ONE; -ONDANSETRON 4 MG/2 ML VIAL ONE
[2023-04-18 10:57] LABS: Absolute Lymphocytes (CBC) 1.6 K/uL (0.7-4.9); Hematocrit 33.9 % (36.0-45.0); Lymphocytes % 6.1 % (15.3-44.8); MPV 6.7 fL (7.6-11.3); Platelets 467 thou/uL (152-406); RBC Red Blood Cell Count 2.87 M/uL (3.86-4.86)
[2023-04-18 11:03] LABS: Protime INR 1.74
--- NOTE | 2023-04-18 11:14 | RAD REPORT ---
EXAM DESCRIPTION: RADChest Single View04/18/2023 10:53 am CLINICAL HISTORY: ABDOMINAL DISTENTION COMPARISON: Chest Single View dated 03/31/2023; Chest Single View dated 05/14/2020; Chest Single View d ated 03/20/2020; Chest Single View dated 03/18/2020 TECHNIQUE: Portable AP view of the chest. FINDINGS: The lungs are clear. No pneumothorax or effusion. The cardiomediastinal contours are unrem arkable. IMPRESSION: No acute cardiopulmonary process.
[2023-04-18 11:17] LABS: ALT/SGPT 48 U/L (13-56); AST/SGOT 69 U/L (15-37); Alkaline Phosphatase 191 U/L (45-117); BUN Blood Urea Nitrogen 25 mg/dL (7-18); Bicarbonate 24 mEq/L (21-32); Bilirubin Direct 5.5 mg/dL (0-0.2); Glomerular Filtration Rate 60 ml/min (=/>90); Glucose Level 100 mg/dL (74-106); Magnesium 2.1 mg/dL (1.6-2.4); NT PRO-BNP 1032 pg/mL (<125); Potassium 3.9 mEq/L (3.5-5.1); Protein, Total 7.2 g/dL (6.4-8.2); Sodium Level 131 mEq/L (136-145); Troponin High Sensitivity 7.3 pg/mL (<58.9)
[2023-04-18 11:18] LABS: Bilirubin Indirect, Calculated 3.9 mg/dL (0.2-0.8); Bilirubin Total 9.4 mg/dL (0.2-1.0); Lipase < 6 U/L (13-75)
[2023-04-18 11:22] LABS: Blood Morphology Comment NOTED (NOT SEEN); Macrocytosis 1+; Platelet Estimate INCR; White Blood Cell Scan OK (OK)
--- NOTE | 2023-04-18 12:18 | RAD REPORT ---
EXAM DESCRIPTION: CT - Abdomen Pelvis W Contrast - 04/18/2023 11:39 am CLINICAL HISTORY: Abd pain;Abdominal distention COMPARISON: Abdomen Pelvis W Contrast dated 03/31/2023; Abdomen Pelvis W Contrast dated 01/19/2018 TECHNIQUE: Thin cut axial CT imaging of the abdomen and pelvis was performed following intravenous a dministration of iodinated contrast. Multiplanar reformats were generated and reviewed. All CT scans are performed using dose optimization technique as appropriate and may include automated exposure control or mA/KV adjustment according to patient size. FINDINGS: No suspicious findings in the lung bases. The liver shows diffuse parenchymal hypoattenuation suggesting steatosis. Spleen, adrenal glands, and pancreas show no suspicious findings. Gallbladder was surgically removed. Postsurgical changes of ga stric bypass as well. . Symmetric renal function is seen with no hydronephrosis or suspicious renal mass. No dilated bowel loops or bowel wall thickening. Segmental mild hyperenhancement along distal small b owel loops in the right flank, with short-segment air-fluid levels. . Moderate free ascites asymmetri vivi accumulating along the right flank, probably due to patient positioning No free air, loculated collections, or inflammatory stranding. No hernia, mass or bulky lymphadenopathy. The urinary bladder is decompressed limiting evaluation. No suspicious bony findings. IMPRESSION: Segmental mucosal hyperenhancement and fluid opacification of nondilated distal small lolita wel. Findings favor infectious or inflammatory enteritis, less likely small bowel ileus. Diffuse hepatic parenchymal hypoattenuation suggesting steatosis. Moderate free ascites, mildly increased in volume since the prior CT.
--- NOTE | 2023-04-18 14:12 | EDPHYS ---
Physician Documentation [facility] Name: Lety Benson Age: 72 yrs Sex: Female : 1950 Arrival Date: 04/18/2023 Time: 09:59 Bed 14 Private MD: ED Physician Kelton Duffy HPI: 04/18 13:58 This 72 yrs old Female presents to ER via Wheelchair with complaints of jori Abdominal Swelling. 13:58 The patient presents with abdominal pain abdominal distention. Onset: The jori symptoms/episode began/occurred 2 week(s) ago. abd pain,distention. Onset: The symptoms/episode began/occurred 14 day(s) ago. The symptoms do not radiate. Associated signs and symptoms: Pertinent positives: nausea. The symptoms are described as constant, crampy. Modifying factors: The symptoms are alleviated by nothing, the symptoms are aggravated by nothing. Severity of pain: At its worst the pain was moderate in the emergency department the pain is actually worse moderately. Severity of symptoms: At their worst the symptoms were moderate in the emergency department the symptoms are unchanged. Historical: - Allergies: 10:04 Codeine; ll1 - PMHx: 10:04 blood thinner-blood clots to both lungs; ll1 10:11 Cirrhosis of liver; kc6 - PSHx: 10:11 Appendectomy; Cholecystectomy; hysterectomy; gastric bipass; kc6 - Immunization history:: Adult Immunizations up to date. - Social history:: Smoking status: Patient denies any tobacco usage or history of. - Family history:: not pertinent. ROS: 13:58 Constitutional: Negative for fever, chills, and weight loss, Eyes: Negative for injury, jori pain, redness, and discharge, ENT: Negative for injury, pain, and discharge, Neck: Negative for injury, pain, and swelling, Cardiovascular: Negative for chest pain, palpitations, and edema, Respiratory: Negative for shortness of breath, cough, wheezing, and pleuritic chest pain, Back: Negative for injury and pain, : Negative for injury, bleeding, discharge, and swelling, MS/Extremity: Negative for injury and deformity, Skin: Negative for injury, rash, and discoloration, Neuro: Negative for headache, weakness, numbness, tingling, and seizure, Psych: Negative for depression, anxiety, suicide ideation, homicidal ideation, and hallucinations, Allergy/Immunology: Negative for hives, rash, and allergies, Endocrine: Negative for neck swelling, polydipsia, polyuria, polyphagia, and marked weight changes, Hematologic/Lymphatic: Negative for swollen nodes, abnormal bleeding, and unusual bruising, 13:58 Abdomen/GI: Positive for abdominal pain, abdominal cramps, abdominal distension, of the right upper quadrant, left upper quadrant, right lower quadrant and left lower quadrant, Exam: 13:58 Constitutional: This is a well developed, well nourished patient who is awake, alert, jori and in no acute distress. Head/Face: Normocephalic, atraumatic. Eyes: Pupils equal round and reactive to light, extra-ocular motions intact. Lids and lashes normal. Conjunctiva and sclera are non-icteric and not injected. Cornea within normal limits. Periorbital areas with no swelling, redness, or edema. ENT: Nares patent. No nasal discharge, no septal abnormalities noted. Tympanic membranes are normal and external auditory canals are clear. Oropharynx with no redness, swelling, or masses, exudates, or evidence of obstruction, uvula midline. Mucous membranes moist. Neck: Trachea midline, no thyromegaly or masses palpated, and no cervical lymphadenopathy. Supple, full range of motion without nuchal rigidity, or vertebral point tenderness. No Meningismus. Chest/axilla: Normal chest wall appearance and motion. Nontender with no deformity. No lesions are appreciated. Cardiovascular: Regular rate and rhythm with a normal S1 and S2. No gallops, murmurs, or rubs. Normal PMI, no JVD. No pulse deficits. Back: No spinal tenderness. No costovertebral tenderness. Full range of motion. Female : Normal external genitalia. 13:58 ECG was reviewed by the Attending Physician. 13:58 Respiratory: the patient does not display signs of respiratory distress, Respirations: normal, Breath sounds: are clear throughout, no bronchial sounds, no decreased breath sounds, no rales, rhonchi, no stridor, Respiratory rate: 18 13:58 Skin: Appearance: Color: jaundiced, Temperature: normal temperature, Moisture: normal moisture, petechiae, not noted, ecchymosis, not noted, abscess, not appreciated, cellulitis, is not appreciated, induration, is not appreciated, Vital Signs: 10:10 BP 98 / 55; Pulse 107; Resp 19 S; Pulse Ox 96% on R/A; Weight 95.25 kg (R); Height 5 kc6 ft. 4 in. (R); Pain 10/10; 11:25 BP 102 / 33; Pulse 94; Resp 15; Pulse Ox 99% ; bp 12:33 BP 114 / 54; Pulse 98; Resp 18; Pulse Ox 97% ; bp 14:51 BP 110 / 70; Pulse 100; Resp 21; Pulse Ox 100% ; bp 10:10 Body Mass Index 36.05 (95.25 kg, 162.56 cm) kc6 10:10 Pain Scale: Adult kc6 NIH Stroke Scale Scores: 13:58 NIHSS Score: 0 jori [place] Coma Score: 13:58 Eye Response: spontaneous(4). Motor Response: obeys commands(6). Verbal Response: jori oriented(5). Total: 15. MDM: 10:09 Patient medically screened. jori 14:08 Differential Diagnosis altered mental status, sepsis. Differential diagnosis: bowel jori obstruction, diverticulitis, gastritis, GI Bleed, Mesenteric ischemia or infarction, non-specific abd pain, pancreatitis, Peptic Ulcer Disease, Perf. Duodenal Ulcer, urinary tract infection. Data reviewed: vital signs, nurses notes, lab test result(s), EKG, radiologic studies, CT scan, plain films. Consideration of Admission/Observation Escalation of care including admission/observation considered. I considered the following discharge prescriptions or medication management in the emergency department Medications were administered in the Emergency Department. See MAR. Independent interpretation of the following test(s) in the Emergency Department EKG: See my EKG interpretation above. Test considered but Not performed: Ultrasound no abd usg. 04/18 10:10 Order name: Basic Metabolic Panel; Complete Time: 12:37 [facility] 04/18 10:10 Order name: CBC with Diff; Complete Time: 12:37 [facility] 04/18 10:10 Order name: LFT's; Complete Time: 12:37 [facility] 04/18 10:10 Order name: Magnesium; Complete Time: 12:37 [facility] 04/18 10:10 Order name: NT PRO-BNP; Complete Time: 12:37 [facility] 04/18 10:10 Order name: PT-INR; Complete Time: 12:37 [facility] 04/18 10:10 Order name: Troponin HS; Complete Time: 12:37 [facility] 04/18 10:10 Order name: Lipase; Complete Time: 12:37 [facility] 04/18 10:10 Order name: AMMONIA; Complete Time: 12:37 [facility] 04/18 11:02 Order name: CBC Smear Scan; Complete Time: 12:37 EDMS 04/18 10:10 Order name: XRAY Chest (1 view); Complete Time: 12:37 [facility] 04/18 10:10 Order name: CT Abd/Pelvis - IV Contrast Only; Complete Time: 12:37 [facility] 04/18 10:10 Order name: EKG; Complete Time: 10:11 [facility] 04/18 10:10 Order name: Cardiac monitoring; Complete Time: 10:13 [facility] 04/18 10:10 Order name: EKG - Nurse/Tech; Complete Time: 12:27 [facility] 04/18 10:10 Order name: IV Saline Lock; Complete Time: 10:56 [facility] 04/18 10:10 Order name: Labs collected and sent; Complete Time: 10:56 [facility] 04/18 10:10 Order name: O2 Per Protocol; Complete Time: 10:13 [facility] 04/18 10:10 Order name: O2 Sat Monitoring; Complete Time: 10:13 [facility] EC:58 Rate is 98 beats/min. Rhythm is regular. QRS [place] is Normal. SD interval is normal. QRS jori interval is normal. QT interval is normal. No Q waves. T waves are Normal. No ST changes noted. Clinical impression: NSR w/ Non-specific ST/T Changes and No evidence of ischemia. Interpreted by me. Reviewed by me. Administered Medications: 10:20 Drug: NS 0.9% IV 1000 ml IV at 125 ml/hr continuous Route: IV; Rate: 125 ml/hr; Site: bp right forearm; 14:03 Drug: metroNIDAZOLE IVPB 500 mg 100 ml IVPB at 200 ml/hr once over 30 mins Volume: 100 ll1 ml; Route: IVPB; Rate: 200 ml/hr; Infused Over: 30 mins; Site: left hand; 14:53 Drug: Ciprofloxacin IVPB 400 mg 200 ml IVPB once over 60 mins Volume: 200 ml; Route: bp IVPB; Infused Over: 60 mins; Site: left forearm; 14:53 Drug: Rocephin IV 1 grams IV at per protocol once; Given slow IV push per pharmacy bp instructions Route: IV; Rate: per protocol; Site: left forearm; Disposition Summary: 04/18/23 14:12 Transfer Ordered Notes: Transfer Location: [facility] jori Reason: Higher level of care jori Condition: Stable jori Problem: new jori Symptoms: have improved jori Accepting Physician: dr blackman(04/18/23 16:02) bd Diagnosis - Abdominal tenderness jori - Alcoholic cirrhosis of liver with ascites jori - Elevated white blood cell count jori - Spontaneous bacterial peritonitis jori - terminal make up operator (current) use of anticoagulants jori - Other viral enteritis jori Forms: - Medication Reconciliation Form jori - SBAR form jori NIH Stroke Scale - NIH Stroke Score Date: 04/18/2023 Time: 13:58 Total Score = 0 10. Dysarthria (speech clarity - read or repeat words) - 0(Normal) 11. Extinction and Inattention (visual/tactile/auditory/spatial/personal) - 0(No abnormality) 1a. Level of Consciousness (LOC) - 0(Alert) 1b. Level of Consciousness (LOC) (Month \T\ Age) - 0(Both) 1c. LOC Commands (Open \T\ Closes Eyes/Bull Wheel Worker) - 0(Both) 2. Best Gaze (Lateral Gaze Paresis) - 0(Normal) 3. Visual Field Loss - 0(No visual loss) 4. Facial Palsy - 0(Normal) 5a. Left Arm: Motor (10-second hold) - 0(No drift) 5b. Right Arm: Motor (10-second hold) - 0(No drift) 6a. Left Leg: Motor (5-second hold - always test supine) - 0(No drift) 6b. Right Leg: Motor (5-second hold - always test supine) - 0(No drift) 7. Limb Ataxia (finger/nose \T\ heel/parsons - test with eyes open) - 0(Absent) 8. Sensory Loss (pinprick arms/legs/face) - 0(Normal) 9. Best Language: Aphasia (description/naming/reading) - 0(No aphasia) Initials: jori Signatures: Dispatcher [employer] EDMS Farrah Sim Corey, MD MD cha Peltier, Brian, RN RN bp Lewis, Lynsay, RN RN ll1 Berta Haro RN RN kc6 Corrections: (The following items were deleted from the chart) 16:02 14:12 dr yehuda wiggins
--- NOTE | 2023-04-18 14:12 | ER ---
Nurse's Notes [facility] Name: Lety Benson Age: 72 yrs Sex: Female : 1950 Arrival Date: 04/18/2023 Time: 09:59 Bed 14 Private MD: Diagnosis: Abdominal tenderness;Alcoholic cirrhosis of liver with ascites;Elevated white blood cell count;Spontaneous bacterial peritonitis;shelter (current) use of anticoagulants;Other viral enteritis Presentation: 04/18 10:10 Chief complaint: Patient states: Dr. Gan sent her here for a paracentesis. states she kc6 has a hx of liver issues. reports intermittent n/v/d. Coronavirus screen: At this time, the client does not indicate any symptoms associated with coronavirus-19. Ebola Screen: No symptoms or risks identified at this time. Initial Sepsis Screen: Does the patient meet any 2 criteria? HR > 90 bpm. No. Patient's initial sepsis screen is negative. Does the patient have a suspected source of infection? No. Patient's initial sepsis screen is negative. Risk Assessment: Do you want to hurt yourself or someone else? Patient reports no desire to harm self or others. Onset of symptoms was April 18, 2023. 10:10 Method Of Arrival: Wheelchair kc6 10:10 Acuity: COOPER 3 kc6 Triage Assessment: 10:11 General: Appears in no apparent distress. uncomfortable, well groomed, well developed, kc6 Behavior is calm, cooperative, appropriate for age. Pain: Complains of pain in abdomen. GI: Abdomen is round Reports diarrhea, nausea, vomiting. Derm: Skin is intact, is healthy with good turgor, Skin is jaundiced. Historical: - Allergies: 10:04 Codeine; ll1 - PMHx: 10:04 blood thinner-blood clots to both lungs; ll1 10:11 Cirrhosis of liver; kc6 - PSHx: 10:11 Appendectomy; Cholecystectomy; hysterectomy; gastric bipass; kc6 - Immunization history:: Adult Immunizations up to date. - Social history:: Smoking status: Patient denies any tobacco usage or history of. - Family history:: not pertinent. Screenin:20 [facility] ED Fall Risk Assessment (Adult) History of falling in the last 3 months, bp including since admission No falls in past 3 months (0 pts). Abuse screen: Denies threats or abuse. Denies injuries from another. Nutritional screening: No deficits noted. Tuberculosis screening: No symptoms or risk factors identified. Assessment: 10:05 General: SEE TRIAGE NOTE. bp 11:25 Reassessment: CT PENDING. bp 12:33 Reassessment: No changes from previously documented assessment. Patient is alert, bp oriented x 3, equal unlabored respirations, skin warm/dry/pink. 14:52 Reassessment: TRANSFER IN PROCESS. bp Vital Signs: 10:10 BP 98 / 55; Pulse 107; Resp 19 S; Pulse Ox 96% on R/A; Weight 95.25 kg (R); Height 5 kc6 ft. 4 in. (R); Pain 10/10; 11:25 BP 102 / 33; Pulse 94; Resp 15; Pulse Ox 99% ; bp 12:33 BP 114 / 54; Pulse 98; Resp 18; Pulse Ox 97% ; bp 14:51 BP 110 / 70; Pulse 100; Resp 21; Pulse Ox 100% ; bp 10:10 Body Mass Index 36.05 (95.25 kg, 162.56 cm) kc6 10:10 Pain Scale: Adult kc6 [place] Coma Score: 13:58 Eye Response: spontaneous(4). Motor Response: obeys commands(6). Verbal Response: jori oriented(5). Total: 15. NIH Stroke Scale Scores: 13:58 NIHSS Score: 0 jori ED Course: 10:01 Patient arrived in ED. rg4 10:03 Srini Alvarez, RN is Primary Nurse. bp 10:03 Arm band placed on Patient placed in an exam room, on a stretcher. ll1 10:09 Kelton Duffy MD is Attending Physician. jori 10:11 Triage completed. kc6 10:15 Inserted saline lock: 22 gauge in right forearm, using aseptic technique. Blood bp collected. 10:20 Patient has correct armband on for positive identification. bp 10:54 XRAY Chest (1 view) In Process Unspecified. EDMS 11:40 CT Abd/Pelvis - IV Contrast Only In Process Unspecified. EDMS 13:52 transfer initiated to [facility] by Dr Duffy. bd 14:00 Inserted saline lock: 24 gauge in left hand, using aseptic technique. Blood collected. ll1 Administered Medications: 10:20 Drug: NS 0.9% IV 1000 ml IV at 125 ml/hr continuous Route: IV; Rate: 125 ml/hr; Site: bp right forearm; 14:03 Drug: metroNIDAZOLE IVPB 500 mg 100 ml IVPB at 200 ml/hr once over 30 mins Volume: 100 ll1 ml; Route: IVPB; Rate: 200 ml/hr; Infused Over: 30 mins; Site: left hand; 14:53 Drug: Ciprofloxacin IVPB 400 mg 200 ml IVPB once over 60 mins Volume: 200 ml; Route: bp IVPB; Infused Over: 60 mins; Site: left forearm; 14:53 Drug: Rocephin IV 1 grams IV at per protocol once; Given slow IV push per pharmacy bp instructions Route: IV; Rate: per protocol; Site: left forearm; Outcome: 14:12 ER care complete, transfer ordered by MD. hsieh 16:02 Patient left the ED. feliciano NIH Stroke Scale - NIH Stroke Score Date: 04/18/2023 Time: 13:58 Total Score = 0 10. Dysarthria (speech clarity - read or repeat words) - 0(Normal) 11. Extinction and Inattention (visual/tactile/auditory/spatial/personal) - 0(No abnormality) 1a. Level of Consciousness (LOC) - 0(Alert) 1b. Level of Consciousness (LOC) (Month \T\ Age) - 0(Both) 1c. LOC Commands (Open \T\ Closes Eyes/Direct Service Provider) - 0(Both) 2. Best Gaze (Lateral Gaze Paresis) - 0(Normal) 3. Visual Field Loss - 0(No visual loss) 4. Facial Palsy - 0(Normal) 5a. Left Arm: Motor (10-second hold) - 0(No drift) 5b. Right Arm: Motor (10-second hold) - 0(No drift) 6a. Left Leg: Motor (5-second hold - always test supine) - 0(No drift) 6b. Right Leg: Motor (5-second hold - always test supine) - 0(No drift) 7. Limb Ataxia (finger/nose \T\ heel/parsons - test with eyes open) - 0(Absent) 8. Sensory Loss (pinprick arms/legs/face) - 0(Normal) 9. Best Language: Aphasia (description/naming/reading) - 0(No aphasia) Initials: jori Signatures: Dispatcher [employer] Farrah Peres Corey, MD MD cha Garcia, Megan rg4 Srini Alvarez, RN RN bp Yoel Rankin RN RN ll1 Berta Haro RN RN kc6
--- NOTE | 2023-04-19 16:44 | EKG ---
Test Date: 2023-04-18 Test Time: 12:23:22 Digital Camera Technician: IZABEL MEASUREMENT RESULTS: Intervals: Rate: 98 WI: QRSD: 74 QT: 312 QTc: 398 [place]: P: WI: QRS: 81 T: 126 INTERPRETIVE STATEMENTS: normal sinus rhythm Low voltage QRS Nonspecific T wave abnormality Abnormal ECG Compared to ECG 03/18/2020 03:35:05 Low QRS voltage now present T-wave abnormality now present Sinus tachycardia no longer present Atrial premature complex(es) no longer present Right-axis deviation no longer present ST (T wave) deviation no longer present Possible ischemia no longer present Electronically Signed On 04-19-23 16:44:11 SENIOR PRINCIPAL PROCESS ENGINEER by Rafal Olmedo
== END ==
LOC: ER 09:59
DX: K70.31 Alcoholic cirrhosis of liver with ascites (principal); K65.8 Other peritonitis; A08.39 Other viral enteritis; D72.829 Elevated white blood cell count, unspecified; Z79.01 Long term (current) use of anticoagulants; Z88.5 Allergy status to narcotic agent
CPT/HCPCS: 85025; 80048; 36415; 82140; 83735; 85610; 80076; 84484; 83690; 83880; 74177; 71045; Q9967; J0744; J7030; J0696; 93005